=== PATIENT | male | born 1945 | race Hispanic/Latino ===

== ENCOUNTER → 2018-03-30 10:40 | Outpatient (CLI) | payer MEDICARE, BC, SELFPAY ==
[2018-03-30 11:34] LABS: AST(SGOT) 21 U/L (15-37); Alanine Aminotransfer ALT/SGPT 33 U/L (16-61); Albumin, Serum 3.5 g/dL (3.2-5.0); Alkaline Phosphatase 69 U/L (45-117); Bilirubin, Direct 0.12 mg/dL (0.00-0.30); Cholesterol 125 mg/dL (200); Globulin 3.4 g/dL (2.2-4.2); High Density Lipoprotein 64 mg/dL; Protein, Total 6.9 g/dL (6.4-8.2); Triglycerides 66 mg/dL; Very Low Density Lipoprotein 13 mg/dL (5-40)
== END ==
PROVIDERS: Nurse Practitioner Family; Family Provider Family Medicine; PCP Family Medicine; Visit Provider Internal Medicine Cardiovascular Disease
DX: I25.10 Atherosclerotic heart disease of native coronary artery without angina pectoris (principal); E78.5 Hyperlipidemia, unspecified
CPT/HCPCS: 36415; 80061; 80076

== ENCOUNTER → 2018-09-24 11:19 | Outpatient (CLI) | payer MEDICARE, BC, SELFPAY ==
[2018-09-24 10:53] VITALS: BMI 29.3
[2018-09-24 13:20] LABS: AST(SGOT) 14 U/L (15-37); Alanine Aminotransfer ALT/SGPT 28 U/L (16-61); Alkaline Phosphatase 43 U/L (45-117); Bilirubin, Direct 0.11 mg/dL (0.00-0.30); Cholesterol 156 mg/dL (200); Globulin 3.2 g/dL (2.2-4.2); High Density Lipoprotein 66 mg/dL; Protein, Total 7.2 g/dL (6.4-8.2); Triglycerides 89 mg/dL; Very Low Density Lipoprotein 18 mg/dL (5-40)
== END ==
PROVIDERS: Family Provider Family Medicine; PCP Family Medicine; Referring Provider Internal Medicine Cardiovascular Disease; Visit Provider Internal Medicine Cardiovascular Disease
DX: I10 Essential (primary) hypertension (principal); Z95.1 Presence of aortocoronary bypass graft
CPT/HCPCS: 36415; 80061; 80076

== ENCOUNTER → 2019-03-24 11:44 | Outpatient (CLI) | payer MEDICARE, BC, SELFPAY ==
[2019-03-24 11:08] VITALS: BMI 29.7
[2019-03-24 13:13] LABS: AST(SGOT) 18 U/L (15-37); Alanine Aminotransfer ALT/SGPT 29 U/L (16-61); Albumin, Serum 3.7 g/dL (3.2-5.0); Alkaline Phosphatase 48 U/L (45-117); Bilirubin, Direct 0.06 mg/dL (0.00-0.30); Cholesterol 150 mg/dL (200); Globulin 3.3 g/dL (2.2-4.2); High Density Lipoprotein 62 mg/dL; Triglycerides 84 mg/dL; Very Low Density Lipoprotein 17 mg/dL (5-40)
== END ==
PROVIDERS: Family Provider Family Medicine; PCP Family Medicine; Referring Provider Internal Medicine Cardiovascular Disease; Visit Provider Internal Medicine Cardiovascular Disease
DX: E78.5 Hyperlipidemia, unspecified (principal)
CPT/HCPCS: 36415; 80061; 80076

== ENCOUNTER 2019-07-11 18:47 | Emergency (ER) | payer MEDICARE, BC, SELFPAY ==
[2019-03-24 11:08] VITALS: BMI 29.7
[2019-07-11 18:48] VITALS: BP 176/72; PULSE 45; RESP 17; TEMP 36.8; O2SAT 99
--- NOTE | 2019-07-11 19:11 | CT_ITS ---
STUDY: CT BRAIN WITHOUT CONTRAST REASON FOR EXAM: Male, 74 years old. Trauma RADIATION DOSAGE (If Supplied By Facility): CTDIvol = ( 44.99 ) mGy, DLP = ( 829.85 ) mGycm TECHNIQUE: Transaxial CT imaging of the brain was performed without administration of intravenous contrast material. Individualized dose optimization techniques were used for this CT. COMPARISON: No relevant priors. FINDINGS: Normal soft tissue structures. Normal calvarium. There is mild cerebral atrophy with widening of the extra-axial spaces and ventricular dilatation. Normal white matter tracts of the cerebral hemispheres. Normal basal ganglia and thalami. Normal brainstem. Normal cerebellum. There is no intracranial hemorrhage. There are no findings of an acute ischemic infarction. There is mucosal thickening of multiple ethmoid air cells bilaterally. CT/Brain/Head without Contrast IMPRESSION: Chronic involutional changes of the brain. Chronic ethmoid sinusitis. Electronically Signed: Pelon Estrada MD at 19:40 EST , Service support ,
--- NOTE | 2019-07-11 19:15 | ED.VIS.INJ ---
History of Present Illness Chief Complaint: Fall Informant: Patient, Significant Other Onset: Today Mechanism/Context: Fall Quality of Pain: Dull, Aching Location: Head and posterior neck Current Severity: Mild Maximum Severity: Moderate Worsened by: Nothing Relieved by: Nothing Associated Symptoms: Loss of consciousness. Negative for: Parasthesias, Weakness, Loss of function, Inability to ambulate Length of loss of consciousness: 30 seconds Narrative: Patient is a 74-year-old male on aspirin for cardiac disease. He was on a ladder. He was on the third rung. He fell backwards striking the back of his head on the linoleum floor. He states he was dazed and had transient loss of conscious. He is on no anticoagulant. He denies blurred vision or loss of vision. He does report nausea. He states he has developed neck pain which he localizes to the spinous process of C7. He also complains of left-sided neck pain. He denies chest or upper back pain. He denies pain in his upper or lower extremities. He states he has little more difficulty walking compared to normal. Tetanus Immunization: 5-10 years Prior similar symptoms: No Recent Illness/Hospitalization: No - Past Medical History (1) Atherosclerotic heart disease of [place] coronary artery without angina pectoris Status: Chronic Comment: S/P CABG in 2003 with GRADY to LAD and diagonal branch; stenting to LCx in March 2016 (2) History of cholecystitis Status: Chronic (3) History of coronary artery bypass graft x 2 Status: Chronic Comment: CABG X 2 vessels: GRADY to LAD and diagonal to LAD 08/02/2004 @ [facility] per Dr. Blanca; (4) Hyperlipidemia Status: Chronic (5) Hypertension Status: Chronic (6) Nonrheumatic mitral (valve) insufficiency Status: Chronic (7) Sinus bradycardia Status: Chronic Past Medical History - Allergies and Home Meds Allergies/Adverse Reactions: Allergies No Known Allergies Allergy (Verified 07/11/19 18:48) Primary Care Physician: Kd Funez DO [Primary Care Provider] - Prior records reviewed: Yes Surgical History: cholecystectomy, TURP - Prostate CA., - - back surg 1980-x 3, 3 crushed vertebrae. Lives: Spouse/ Significant Other Smoking Status: Never smoker Alcohol: None Drugs: None Review of Systems General: Denies: Chills, Fever, Sweats Eyes: Denies: Visual changes - bilaterally, Blurred Vision - bilaterally, Diplopia ENT: Reports: Bilateral ear pain. Denies: Rhinorrhea, Sore throat Cardiovascular: Denies: Chest pain, Palpitations Respiratory: Denies: Dyspnea, Cough, Dyspnea on exertion Gastrointestinal: Reports: Nausea. Denies: Abdominal pain, Vomiting, Diarrhea, Melena, Hematochezia Genitourinary: Denies: Dysuria, Hematuria, Frequency Musculoskeletal: Reports: Neck pain. Denies: Myalgias, Arthralgias, Back pain, Swelling, Extremity Pain Skin: Denies: Rash, Wounds Neurological: Reports: Headache, - - Difficulty walking. Denies: Weakness, Parasthesia, Numbness Hematologic: Denies: Easy bruising, Easy bleeding Physical Exam Vital Signs/Narrative: Vital Signs Temp Pulse Resp BP Pulse Ox 07/11/19 18:48 98.3 F 45 L 17 176/72 H 99 Inital Vital Signs reviewed: Yes General: Well nourished, Well developed Head: Normocephalic, Atraumatic, Tenderness - There is tenderness over the occiput. Eyes: Perrl, EOMI ENT: TM's clear, No hemotympanum or drainage, No trauma. Negative for: Hemotympanum, Otorrhea, Nasal trauma, Nasal septal hematoma Neck: Nontender, Full ROM, Spinal Tenderness - Pain palpation over the spinous process of C7. Cardiovascular: Regular rhythm, No murmurs, Bradycardia Respiratory: No distress, CTA bilaterally, Chest nontender Abdomen: Soft, Nontender, Nondistended, Normal bowel sounds Back: Nontender, - - No pain palpation of the pelvis.. Negative for: CVA Tenderness - Right, CVA Tenderness - Left, Spinal Tenderness, Paraspinal Tenderness Extremeties: Axillary, median, radial and ulnar function intact right and left upper extremity. There is no pain the patient with the proximal humerus, lateral medial epicondyle, olecranon process radial head. Is no pain the patient with distal radius or ulna. Is no pain the patient with carpal bones, metacarpal bones or phalanges. There are abrasions and contusions noted. Skin: Normal color, No rash, Trauma - There are contusions and abrasions noted upper extremity.. Negative for: Cyanosis, Diaphoresis, Jaundice Neurological: Alert, Oriented x3, Cranial nerves II-XII grossly intact, Normal Strength, Normal Sensation, Normal DTR - There is no clonus or Babinski sign noted. Psychological: Normal affect Diagnostic/Tx/Re-eval Chest X-Ray - ED: Read by ED Physician, Read by Radiologist, - - Three-view x-rays cervical spine reveals a prior avulsion fracture of the spinous process C6. There is evidence of nonunion. There is degenerative change with no acute findings. Impressions Brain CT 07/11/19 19:11 IMPRESSION: Chronic involutional changes of the brain. Chronic ethmoid sinusitis. Electronically Signed: Pelon Estrada MD at 19:40 EST , Service support , Cervical Spine X-Ray 07/11/19 19:20 IMPRESSION: Cervical degenerative changes as detailed above. Old nonunited fracture or nonfused apophysis of the tip of the C6 spinous process. Electronically Signed: Pelon Estrada MD at 19:43 EST , Service support , 07/11/19 19:11 Brain/Head without Contrast [CT] Stat 07/11/19 19:20 Cerv Spine 2 or 3 Views [RAD] Stat - Medical Decision Making Per the [place] CT head rule imaging is required. CT of the head was obtained. Since the neck pain was not immediate will obtain C-spine films since he has point tenderness over the spinous process of C7. Patient is made n.p.o. Differential is contusion versus concussion versus intracranial bleed, traumatic. Need to evaluate for cervical strain versus fracture. ED Disposition - Plan for ED Patient: Disposition: Home or Assisted Living Diagnosis: Concussion with brief LOC, Cervical strain, acute Instructions: CONCUSSION, No Wake Up, Neck Sprain/Strain Referrals: Kd Funez DO [Primary Care Provider] - 1 Week if not improving
--- NOTE | 2019-07-11 19:20 | RAD_ITS ---
STUDY: X-RAY - CERVICAL SPINE REASON FOR EXAM: Male, 74 years old. Trauma TECHNIQUE: 4 view(s) of the cervical spine were obtained. COMPARISON: None FINDINGS: Normal anterior atlantoaxial articulation. Normal odontoid process. Normal cervical lordosis. There is endplate spondylosis of C4-C7. There is narrowing of the C4-5 through C6-7 disc spaces. There is an old nonunited fracture or nonfused apophysis of the tip of the C6 spinous process. There is no evidence of acute fracture. The soft tissue structures are unremarkable. RAD/Cerv Spine 2 or 3 Views IMPRESSION: Cervical degenerative changes as detailed above. Old nonunited fracture or nonfused apophysis of the tip of the C6 spinous process. Electronically Signed: Pelon Estrada MD at 19:43 EST , Service support ,
== END 2019-07-11 20:58 | disposition home or self-care (01) ==
PROVIDERS: Emergency Provider Emergency Medicine; Family Provider Family Medicine; PCP Family Medicine
DX: S06.0X1A Concussion with loss of consciousness of 30 minutes or less, initial encounter (principal); S16.1XXA Strain of muscle, fascia and tendon at neck level, initial encounter; W11.XXXA Fall on and from ladder, initial encounter; Y93.9 Activity, unspecified; Y92.9 Unspecified place or not applicable; J32.2 Chronic ethmoidal sinusitis; M47.812 Spondylosis without myelopathy or radiculopathy, cervical region; I25.10 Atherosclerotic heart disease of native coronary artery without angina pectoris; Z95.1 Presence of aortocoronary bypass graft; E78.5 Hyperlipidemia, unspecified; I10 Essential (primary) hypertension; Z90.49 Acquired absence of other specified parts of digestive tract; Z85.46 Personal history of malignant neoplasm of prostate
CPT/HCPCS: 70450; 72040; 99282

== ENCOUNTER → 2019-09-24 12:11 | Outpatient (CLI) | payer MEDICARE, BC, SELFPAY ==
[2019-09-24 13:23] LABS: AST(SGOT) 24 U/L (15-37); Alanine Aminotransfer ALT/SGPT 30 U/L (16-61); Albumin, Serum 3.8 g/dL (3.2-5.0); Alkaline Phosphatase 57 U/L (45-117); Bilirubin, Direct 0.08 mg/dL (0.00-0.30); Cholesterol 127 mg/dL (200); Globulin 3.5 g/dL (2.2-4.2); High Density Lipoprotein 53 mg/dL; Protein, Total 7.3 g/dL (6.4-8.2); Triglycerides 89 mg/dL; Very Low Density Lipoprotein 18 mg/dL (5-40)
== END ==
PROVIDERS: PCP Family Medicine; Referring Provider Internal Medicine Cardiovascular Disease; Visit Provider Internal Medicine Cardiovascular Disease
DX: E78.5 Hyperlipidemia, unspecified (principal)
CPT/HCPCS: 36415; 80061; 80076

== ENCOUNTER → 2020-04-24 12:45 | Outpatient (CLI) | payer MEDICARE, BC, SELFPAY ==
[2020-04-06 11:25] VITALS: BMI 29.0
--- NOTE | 2020-04-24 12:46 | ECHOD_ITS ---
Reason For Study: MURMUR Procedure This was a 2D Doppler, Color Flow transthoracic echocardiogram. Exam performed in department. Left Ventricle Normal LV size. Left ventricular systolic function is normal. Stage 2 diastolic dysfunction. No regional wall motion abnormalities noted. Right Ventricle Moderately dilated right ventricle. Normal systolic function. Atria The left atrium is severely enlarged. The right atrium is moderately enlarged. Mitral Valve Normal mitral valve. Mild (1+) eccentric mitral valve insufficiency. Tricuspid Valve Normal tricuspid valve. Mild (1+) tricuspid valve insufficiency. Pulmonary artery systolic pressure is 30 mmHg. Aortic Valve Trisinus/trileaflet aortic valve. Mild focal aortic valve calcification. Pulmonic Valve Normal pulmonic valve. Great Vessels Normal aortic root. The pulmonary artery is normal size. Normal inferior vena cava. Pericardium/Pleural No pericardial effusion. MMode/2D Measurements & Calculations LVIDd: 5.4 cm IVSd: 1.1 cm LVOT diam: 2.2 cm LVIDs: 3.5 cm LVPWd: 1.1 cm LVOT area: 4.0 cm2 RVDd: 5.3 cm FS: 34.8 % Ao root diam: 3.1 cm LAV(MOD-bp): 135.2 ml LA A4 area: 32.4 cm2 LAV(MOD-bp) Indexed: 70.7 ml/m2 LAV(MOD-sp2): 129.9 ml LAV(MOD-sp4): 139.5 ml LA dimension(2D): 5.5 cm RA A4 area: 29.6 cm2 Time Measurements MV dec time: 0.20 sec Doppler Measurements & Calculations MV E max aaron: 91.1 cm/sec Lat Peak E' Aaron: 12.8 cm/sec Med Peak E' Aaron: 6.0 cm/sec MV A max aaron: 54.0 cm/sec E/E' lat: 7.1 E/E' med: 15.1 MV E/A: 1.7 Ao V2 max: 224.4 cm/sec LV V1 max: 116.1 cm/sec SV(LVOT): 127.6 ml Ao max P.2 mmHg LV V1 max P.4 mmHg Ao V2 mean: 160.4 cm/sec LV V1 mean P.2 mmHg Ao mean P.1 mmHg LV V1 mean: 85.4 cm/sec Ao V2 VTI: 62.0 cm LV V1 VTI: 32.2 cm JULIA(I,D): 2.1 cm2 JULIA(V,D): 2.0 cm2 PA V2 max: 108.4 cm/sec TR max aaron: 263.2 cm/sec TR max P.7 mmHg Interpretation Summary Normal LV size. Left ventricular systolic function is normal. Stage 2 diastolic dysfunction. Pulmonary artery systolic pressure is 30 mmHg. The left atrium is severely enlarged. The right atrium is moderately enlarged. Ordering Physician: Shadi Caballero Referring Physician: Kd Funez Performed By: Tamie Santillan RDCS, RVT
== END ==
PROVIDERS: PCP Family Medicine; Referring Provider Nurse Practitioner Family; Visit Provider Nurse Practitioner Family
DX: I25.10 Atherosclerotic heart disease of native coronary artery without angina pectoris (principal); I34.0 Nonrheumatic mitral (valve) insufficiency
CPT/HCPCS: 93306

== ENCOUNTER → 2021-07-30 08:04 | Outpatient (CLI) | payer MEDICARE, BC, SELFPAY ==
--- NOTE | 2021-07-30 08:07 | RAD_ITS ---
STUDY: X-RAY - ESOPHAGUS (BARIUM SWALLOW) WITH FLUOROSCOPY REASON FOR EXAM: Male, 76 years old. DYSPHAGIA TECHNIQUE: 17 view(s) of the esophagus were obtained following swallowing of barium. FLUOROSCOPY TIME (if supplied): (1 minute) minutes/seconds COMPARISON: None. FINDINGS: There is no demonstrated esophageal foreign body. There is no demonstrated stricture or mucosal abnormality. There is a small hiatal hernia of the fundus of the stomach. A mild degree of weblike stenosis is seen at the gastroesophageal junction. The patient ingested a 12 mm tablet of barium. The tablet is temporarily trapped at that level. There is evidence of gastroesophageal reflux. There is atherosclerotic tortuosity of the aortic arch and descending thoracic aorta. Normal visualized pulmonary parenchyma. There are diffuse degenerative changes of the visualized thoracic spine. RAD/Esophagus Single Contrast IMPRESSION: Small sliding hiatal hernia with mild narrowing at the gastroesophageal junction due to weblike stenosis. There is transient trapping of the 12 mm tablet of barium at that site. Gastroesophageal reflux. Electronically Signed: Edmond Mejia MD at 13:04 EST , Service support ,
== END ==
PROVIDERS: PCP Internal Medicine; Referring Provider Otolaryngology Otolaryngology/Facial Plastic Surgery; Visit Provider Otolaryngology Otolaryngology/Facial Plastic Surgery
DX: R13.10 Dysphagia, unspecified (principal)
CPT/HCPCS: 74220

== ENCOUNTER 2021-08-13 12:00 | Outpatient (RCR) | payer MEDICARE, BC, SELFPAY ==
--- NOTE | 2021-07-17 17:32 | HP.PTEVAL ---
Patient's Visit Information DELL CHAN is a 76 year old M referred to Physical Therapy by Dr. Janet Green MD with a diagnosis of LBP. Date of Evaluation: 07/17/21 Physical Therapist: STEFF WildT, OCS, CSCS - Visit Plan Frequency: 3x /Week Duration: 4-6 Weeks Plan: 3x/week for 4-6 weeks as needed for... 1 rollout and stretch quads and Hip flexors. 2. Work on lumbar extension and ext mobs t/s l/s. 3. postural and core and upper leg strength to HEP. 4. STM to R t/s paraspinals as needed. - Subjective Had a fall or two in past couple months. I am fighting a disease with meds for last couple years for leukemia. [place] better with meds. The back has hurt since May and hurts for up to 3 hours at a time. Not sure what started it but did fall off a ladder around that time without other injuries(ladder slipped, not a balance issue). No breaks but did bump head. Last fall was 06/25 falling off a step ladder adjusting curtain rods. warned him not to do it. Missed the last step at bottomand hit the ground landing on left side anteriorly and caught self with hands on floor(ext moment). Since then has had a lot of pain trying to sleep. Sometimes mild pain for short duration but lingers at other times. Went shooping last friday and can typically walk OK but worse if walks too far. R leg started hurting as his knees are bad. That was about 8 times around [employer]. That pain started in R LB at the time and was up to 8/10 and can work its way into R medial lower leg. Also gets cramps in both legs. Sitting is OK unless he turns too fast to the right and that will hurt in middle of spine into R hip. Can sit two hours before it gets real bad. Needs to get stronger in muscles. Activities: Basic ADLs are OK. Not employed. Activities at home are getting done and he is cleaning the house but can only do so much before he gets tired fromt he pain. No numbness or tingling. No dizzyness. Hurts to cough. No trouble bowel or bladder. No cane or walker. - Pain LBP R Pain Intensity (Out of 10): 1 Pain Intensity Range: 1, 8 - Objective Walks hunched over with kyphosis in thoracic spine and sits in the same manner, some of this is structural. Tender to touch R 6/7 rib which sticks out a little bit and surrounding musculature., Very stiff and tender to PA pressure T/S...less so lumbar. Good cervical aROM without pain. reflexes 2/3 patella and achilles. Sensation LE WNL to gross light touch in LE. UE AAROM WFL, some pain with resisted flexion in LB. core strength 3 ext and flexion. LE strength 4- without myotomal abnormalities except hip ext and abd 3/5 symmetrical. Max tightness in hip flexors and quads, mod in HS with + B SLR for back pain. Lumbar AROM ext nil, flexion slow but min deficits, SB mod deficits. Trasnfers bed and chair slow but I. Walks well and steps reciprocal with one rail. Unable to lie supine at first due to pain but after ext ex could lie flat. - Balance/Special Test Scores Functional Gait Assessment Score: 24 % Disability: 20.0000 Oswestry Low Back Score: 17 - Goals Goal 1:: Sleep without waking at night due to pain Goal Time Frame: 4-6 Weeks Goal 2:: Patient stand from chair and ambulate without evidence of pain. Goal Time Frame: 4-6 Weeks Goal 3:: Pt state 90% improvement incondition and I appropiate HEP to minimize future problems. Goal Time Frame: 4-6 Weeks Goal 4:: Oswestry score 10 or less. Goal Time Frame: 4-6 Weeks - Rehabilitation Potential Physical Therapy Diagnosis: LBP causing limiting funciton Rehabilitation Potential: Fair - Anticipated Interventions Patient/Client Instruction: Educate patient on: Condition, Plan of Care For the Purpose of:: To decrease pain, To increase ROM, To improve muscle performance and motor function, To increase tolerance to activity/condition/position, To improve ability of physical actions for home/community/work/leisure Therapeutic Exercise to Include: Strength training, Postural training, Flexibilty training, Passive ROM, Active ROM, Dynamic Lumbar Stabilization For the Purpose of:: To decrease pain, To increase ROM, To improve muscle performance and motor function, To increase tolerance to activity/condition/position, To improve ability of physical actions for home/community/work/leisure Manual Therapy Techniques to Include: Mobilization, Passive ROM, Soft tissue mobilization For the Purpose of:: To decrease pain, To increase ROM Thermo therapy (hot pack): Yes For the Purpose of:: To improve nutrient delivery to tissue Thank you for the opportunity to evaluate your patient. For Medicare and Medicare HMO plans, please review the plan of care and approve it. It will need to be FAXED BACK to us at [phone] for Medicare purposes. For Medicare only, by signing this I certify the plan of care. Please let me know if there are questions or concerns regarding this plan of care. Physician Signature: Date:
--- NOTE | 2021-08-13 12:16 | HP.PTDCSUM ---
It has been my pleasure to treat DELL CHAN referred by Dr. Janet Green MD, with the diagnosis of LBP for a total of 10 visit(s). Discharge Date: 08/13/21 Please see the following information for a summary of their discharge status. Subjective: Just had an MRI of his Low back. usually still have problems with twisting wrong as a reaction adn gets the pain. Pain is not ongoing like originally. No disruption from L hip pain. R hip is almost nothing. has some LBP that is improved with exercises he is doing at home. Activities are normal. Pain is mild if he gets it. Pain up to 2/10 lately and manageable. 0/10 currently Sleeping well. Will see doctor for MRI results(kidney?) LBP R Pain Intensity (Out of 10): 0 LBP L Pain Intensity (Out of 10): 0 % Improvement: 99 Objective/Function: Good AROM of LB. Ext still limited to about 10 but no pain. Moves easily off chair and table. Walks normal. Lies flat without issues. Goal 1:: Sleep without waking at night due to pain Goal Progress: Goal Met Goal 2:: Patient stand from chair and ambulate without evidence of pain. Goal Progress: Goal Met Goal 3:: Pt state 90% improvement incondition and I appropiate HEP to minimize future problems. Goal Progress: Goal Met Goal 4:: Oswestry score 10 or less. Goal Progress: Goal Met Plan: d/c to HEP If there are questions or concerns regarding this patient's physical therapy, please feel free to call me at [phone]. Thank you for the referral of this patient. Sincerely, Tito Pretty, DPT, OCS, CSCS Balance/Gait/Functional tests - Balance/Special Test Scores Functional Gait Assessment Score: 24 % Disability: 20.0000 Oswestry Low Back Score: 3
== END 2021-08-13 19:00 | disposition home or self-care (01) ==
LOC: PT 12:00
PROVIDERS: PCP Internal Medicine; Referring Provider Internal Medicine; Visit Provider Internal Medicine
DX: M54.50 Low back pain, unspecified (principal); Z98.890 Other specified postprocedural states
CPT/HCPCS: 97110; 97140; 97162; 97164

== ENCOUNTER → 2021-10-25 11:40 | Day surgery (SDC) | payer MEDICARE, BC, SELFPAY ==
[2021-10-25 11:56] VITALS: BP 154/71; PULSE 57; TEMP 36.3; O2SAT 98
== END ==
PROVIDERS: PCP Internal Medicine; Referring Provider Internal Medicine; Visit Provider Surgery
PROC: F00ZJWZ Instrumental Swallowing and Oral Function Assessment using Swallowing Equipment (ICD-10-PCS; CPT 43235; principal; 2021-10-25 11:55)
DX: K21.9 Gastro-esophageal reflux disease without esophagitis (principal)
CPT/HCPCS: 91010

== ENCOUNTER 2021-12-05 07:37 | Outpatient (CLI) | payer MEDICARE, BC, SELFPAY ==
[2021-12-05 09:33] LABS: Free T3 2.1 pg/mL (2.18-3.98); Thyroid Stim Hormone (TSH) 4.05 uIU/mL (0.358-3.74)
[2021-12-11 12:00] LABS: Thyroid Peroxidase AB < 8 IU/mL (0-34)
[2021-12-11 13:11] LABS: Thyroglobulin Antibody < 1.0 IU/mL (0.0-0.9)
== END 2021-12-05 23:59 | disposition home or self-care (01) ==
LOC: LAB 07:39
PROVIDERS: PCP Internal Medicine; Referring Provider Internal Medicine; Visit Provider Internal Medicine
DX: E04.1 Nontoxic single thyroid nodule (principal); E78.5 Hyperlipidemia, unspecified
CPT/HCPCS: 36415; 84439; 84443; 84481; 86376; 86800

== ENCOUNTER 2023-08-05 15:46 | Emergency (ER) | payer MEDICARE, BC, SELFPAY ==
[2023-08-05 15:48] VITALS: BP 188/60; PULSE 59; RESP 18; TEMP 36.8; O2SAT 100; BMI 24.9
--- NOTE | 2023-08-05 16:19 | EDS_ITS ---
HPI History of Present Illness Chief Complaint: Confusion Narrative Narrative: 78-year-old male with history of progressive dementia presenting with confusion. Patient was found outside of the house. He states that he believes he had a little girl in the backseat of his truck yesterday. He apparently believes she had Cobb's tied around her head. He states that he asked her why she was looking at him and she said nothing to him. He took this as not wanting to respond. His daughter who is here states that he was at home yesterday and this did not occur. Patient apparently was able to drive away from home today after finding his keys and was found in [place] going to [employer]. The police were called and he was detained and sent to the ER for evaluation. Patient's daughter feels like he is at baseline. She states that he has had progressive dementia. She states that he has had hallucinations both audio and visual. Patient is currently on Rexulti, however this is making his symptoms worse. Patient was previously on [facility] Medical History Atherosclerotic heart disease of [place] coronary artery without angina pectoris Behavioral and psychological symptoms of dementia Chronic myelogenous leukemia Essential (primary) hypertension Food sticks on swallowing GERD (gastroesophageal reflux disease) History of cholecystitis Hyperlipidemia Lump in throat Nonrheumatic mitral (valve) insufficiency Prostate cancer Secondary pulmonary arterial hypertension Sinus bradycardia Home Medications multivitamin with folic acid 400 mcg tablet 1 tab PO DAILY 08/09/13 [History Last Taken 08/19/13] sildenafil (pulm.hypertension) 20 mg tablet 20 mg PO .COMPLEX 10/02/17 [History Last Taken Unknown] guaifenesin 600 mg tablet, extended release 12 hr (Mucinex) 600 mg PO BID PRN 07/05/21 [History Last Taken Unknown] rosuvastatin 10 mg tablet (Crestor) 10 mg PO QDAY #90 tabs 04/24/22 [Rx Last Taken Unknown] bosutinib 500 mg tablet 500 mg PO DAILY 02/17/23 [History Last Taken Unknown] tamsulosin 0.4 mg capsule (Flomax) 0.4 mg PO DAILY 02/17/23 [History Last Taken Unknown] lisinopril 20 mg tablet 20 mg PO BID #180 tabs 03/12/23 [Rx Last Taken Unknown] nitroglycerin 0.4 mg sublingual tablet 0.4 mg sublingual Q5M PRN Chest Pain #25 tabs 06/04/23 [Rx Last Taken Unknown] Allergy/AdvReac Type Severity Reaction Status Date / Time No Known Allergies Allergy Verified 07/31/23 15:45 Family History Brother CAD (coronary artery disease) Myocardial infarction Alzheimer's dementia Brother , Age 63 Cancer Mother Cancer Breast cancer Father Alzheimer's dementia Surgical History H/O coronary artery bypass surgery (08/02/04) H/O knee surgery H/O laminectomy History of bone marrow biopsy History of cholecystectomy History of coronary artery stent placement (03/19/16) History of esophagogastroduodenoscopy (EGD) History of right inguinal hernia repair History of tonsillectomy History of transurethral resection of prostate (2012) Iliac artery bleed Social History Smoking Status: Never smoker alcohol intake: current alcohol intake frequency: a few times a month Alcohol type: beer caffeine: No EXAM Physical Exam Const Vital Signs: 08/05/23 15:48 Temperature 98.2 F Temperature Source Oral Pulse Rate 59 L Respiratory Rate 18 Blood Pressure 188/60 H Blood Pressure Mean 102 Pulse Ox 100 Oxygen Delivery Method Room Air MDM MDM MDM Narrative Medical decision making narrative: Patient presenting with his daughter for more confusion and dementia. Is not a new problem. No evidence of trauma on examination. Vital signs are stable he is afebrile. Per daughter she just wants some resources to help take care of him during the daytime when she can be around. I had social work come see them. Patient's daughter states that she is comfortable taking him home and is happy with the resources. Impression: 1. History of dementia Discharge Plan Triage Chief Complaint: Confusion ED Provider: Steve Gilbert Dx/Rx/DC Orders Instructions: ED DEMENTIA Alzheimer's Prescriptions: No Action sildenafil (pulm.hypertension) 20 mg tablet 20 mg PO .COMPLEX Patient Comments: 20 mg PO 5 tablets prn: do not take within 24 hours of nitro Rx Instructions: 20 mg PO 5 tablets prn: do not take within 24 hours of nitro guaifenesin [Mucinex] 600 mg tablet extended release 12hr 600 mg PO BID PRN bosutinib 500 mg tablet 500 mg PO DAILY Rx Instructions: must administer with a meal/food tamsulosin [Flomax] 0.4 mg capsule 0.4 mg PO DAILY multivitamin with folic acid 1 TABLET tablet 1 tab PO DAILY Patient Comments: multivitamin rosuvastatin [Crestor] 10 mg tablet 10 mg PO QDAY Qty: 90 3RF lisinopril 20 mg tablet 20 mg PO BID Qty: 180 3RF nitroglycerin 0.4 mg tablet, sublingual 0.4 mg SUBLINGUAL Q5M PRN (Reason: Chest Pain) Qty: 25 3RF Primary Care Provider: Janet Green Referrals: Janet Green MD [Primary Care Provider] - Disposition Disposition: Home, Self Care
--- NOTE | 2023-08-05 16:45 | CM.ED ---
Social Work Physician requested SW to provided some support and resources for patient and patient's . SW introduced self and role to patient and , Jyotsna. 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 Pt left their home and was found wandering outside with confusion. reports patient is at baseline and has no additional concerns about mental status. SW provided [place] [facility] day [facility] information, direction home handout, and [facility] private pay list. SW also discussed PCP can do an order for [facility] if she thinks it would be helpful. reports [place] is primarily what she needs and she will look into it. SW provided emotional support. denies any other SW needs at this time. Brianne Agrawal DERMATOLOGY NURSE, [employer]
== END 2023-08-05 18:06 | disposition home or self-care (01) ==
PROVIDERS: Emergency Provider Student in an Organized Health Care Education/Training Program; PCP Internal Medicine; Referring Provider Student in an Organized Health Care Education/Training Program; Visit Provider Student in an Organized Health Care Education/Training Program
DX: F03.90 Unspecified dementia, unspecified severity, without behavioral disturbance, psychotic disturbance, mood disturbance, and anxiety (principal); I25.10 Atherosclerotic heart disease of native coronary artery without angina pectoris; I10 Essential (primary) hypertension; E78.5 Hyperlipidemia, unspecified; Z79.899 Other long term (current) drug therapy
CPT/HCPCS: 99284

== ENCOUNTER 2023-10-25 13:11 | Inpatient (IN) | payer MEDICARE, BC, SELFPAY ==
[2023-10-25 13:12] VITALS: BP 150/64; PULSE 62; RESP 18; TEMP 36.6; O2SAT 99
--- NOTE | 2023-10-25 13:19 | EKG12_ITS ---
Test Reason : Blood Pressure : / mmHG Vent. Rate : 052 BPM Atrial Rate : 052 BPM P-R Int : 178 ms QRS Dur : 108 ms QT Int : 428 ms P-R-T Axes : 046 -23 011 degrees QTc Int : 398 ms Sinus bradycardia Minimal voltage criteria for LVH, may be normal variant ( R in aVL ) Nonspecific ST abnormality Abnormal ECG Confirmed by RENEE JIMENEZ, DORITA ([id number]), website/blog editor LORENZO BENTLEY ([id number]) on 10/27/2023 10:17:46 AM Referred By: Confirmed By:DORITA DURAN MD
--- NOTE | 2023-10-25 13:27 | CT_ITS ---
STUDY: CT BRAIN WITHOUT CONTRAST REASON FOR EXAM: Male, 78 years old. confusion RADIATION DOSAGE (If Supplied By Facility): CTDIvol = ( 44.99 ) mGy, DLP = ( 863.60 ) mGycm TECHNIQUE: Transaxial CT imaging of the brain was performed without administration of intravenous contrast material. Individualized dose optimization techniques were used for this CT. COMPARISON: 07/11/2019 FINDINGS: Normal soft tissue structures. Normal calvarium. There is moderate cerebral atrophy with widening of the extra-axial spaces and ventricular dilatation. There are areas of decreased attenuation within the white matter tracts of the supratentorial brain, consistent with microvascular disease changes. Normal basal ganglia and thalami. Normal brainstem. Normal cerebellum. There is no intracranial hemorrhage. There are no findings of an acute ischemic infarction. Normal visualized paranasal sinuses. CT/Brain/Head without Contrast IMPRESSION: Chronic involutional changes of the brain. Electronically Signed: Gonsalo Richards MD at 15:10 EST ,
--- NOTE | 2023-10-25 13:30 | EDS_ITS ---
HPI <LJ Valera - Last Filed: 10/25/23 15:48> History of Present Illness Chief Complaint: Confusion Narrative Narrative: 78-year-old male with PMH of HTN, HLD, CAD, Alzheimer's dementia was brought in after being pink slipped by [facility]. Deputies were contacted by the patient's . She states he had all of his guns not on his bed when she walked in and asked them to put them away he did not want to. He is not suicidal homicidal but is confused from his dementia and she does not feel he is safe at home. He made comments about seeing things that are not there and is having nonsensical conversations. He is also known to wander from the house. He is unable to drive. When I asked the patient if he is suicidal or he said I have never wanted to do anything threatening to myself. When I asked about hallucinations he cannot really explain. <Dr. Jaswant James MD - Last Filed: 10/25/23 19:28> Narrative Prior similar symptoms: Yes Recent Illness/Hospitalization: No PFSH <LJ Valera - Last Filed: 10/25/23 15:48> PFSH Medical History Atherosclerotic heart disease of [place] coronary artery without angina pectoris Behavioral and psychological symptoms of dementia Chronic myelogenous leukemia Essential (primary) hypertension Food sticks on swallowing GERD (gastroesophageal reflux disease) History of cholecystitis Hyperlipidemia Lump in throat Nonrheumatic mitral (valve) insufficiency Prostate cancer Secondary pulmonary arterial hypertension Sinus bradycardia Home Medications multivitamin with folic acid 400 mcg tablet 1 tab PO DAILY 08/09/13 [History Last Taken 10/25/23] sildenafil (pulm.hypertension) 20 mg tablet 20 mg PO .COMPLEX 10/02/17 [History Last Taken Unknown] guaifenesin 600 mg tablet, extended release 12 hr (Mucinex) 600 mg PO BID PRN congestion 07/05/21 [History Last Taken Unknown] bosutinib 500 mg tablet 500 mg PO DAILY 02/17/23 [History Last Taken Unknown] tamsulosin 0.4 mg capsule (Flomax) 0.4 mg PO DAILY 02/17/23 [History Last Taken 10/24/23] lisinopril 20 mg tablet 20 mg PO BID #180 tabs 03/12/23 [Rx Last Taken 10/25/23] nitroglycerin 0.4 mg sublingual tablet 0.4 mg sublingual Q5M PRN Chest Pain #25 tabs 06/04/23 [Rx Last Taken Unknown] rosuvastatin 10 mg tablet See Rx Instructions .Route .COMPLEX #90 tabs 08/19/23 [Rx Last Taken 10/24/23] Allergy/AdvReac Type Severity Reaction Status Date / Time No Known Allergies Allergy Verified 10/25/23 13:16 Family History Brother CAD (coronary artery disease) Myocardial infarction Alzheimer's dementia Brother , Age 63 Cancer Mother Cancer Breast cancer Father Alzheimer's dementia Surgical History H/O coronary artery bypass surgery (08/02/04) H/O knee surgery H/O laminectomy History of bone marrow biopsy History of cholecystectomy History of coronary artery stent placement (03/19/16) History of esophagogastroduodenoscopy (EGD) History of right inguinal hernia repair History of tonsillectomy History of transurethral resection of prostate (2012) Iliac artery bleed Social History Smoking Status: Never smoker alcohol intake: current alcohol intake frequency: a few times a month Alcohol type: beer caffeine: No ROS <LJ Valera - Last Filed: 10/25/23 15:48> ROS ED ROS Narrative Constitutional: Negative for fever, chills, malaise. CVS: Negative for chest pain. Respiratory: Negative for shortness of breath. GI: Negative for nausea, vomiting. EXAM <LJ Valera - Last Filed: 10/25/23 15:48> Physical Exam Narrative Exam Narrative: CONST: Patient sitting in no acute distress. EYES: Normal inspection. NECK: Normal inspection. RESP: No respiratory distress, CTAB. CVS: Regular rate and rhythm, no murmur, no gallop. ABD: Soft and nontender, no guarding or rebound, nondistended. SKIN: Color normal, no rash, warm, dry, intact. EXTREMITIES: Normal appearance, no pedal edema. NEURO: Alert to self only. States year is 1925. Follows commands, moving all extremities. PSYCH: Normal affect. Const Vital Signs: 10/25/23 13:12 10/25/23 15:40 Temperature 98 F 98.7 F Temperature Source Temporal Pulse Rate 62 74 Respiratory Rate 18 16 Blood Pressure 150/64 H 145/96 H Blood Pressure Mean 92 112 Pulse Ox 99 94 Oxygen Delivery Method Room Air <Dr. Jaswant James MD - Last Filed: 10/25/23 19:28> Physical Exam Const Vital Signs: 10/25/23 13:12 10/25/23 15:40 Temperature 98 F 98.7 F Temperature Source Temporal Pulse Rate 62 74 Respiratory Rate 18 16 Blood Pressure 150/64 H 145/96 H Blood Pressure Mean 92 112 Pulse Ox 99 94 Oxygen Delivery Method Room Air MDM <LJ Valera - Last Filed: 10/25/23 15:48> MDM MDM Narrative Medical decision making narrative: History gathered from: Patient's , patient Patient has a debate patient has dementia and feels he was not safe at home. He appears well and nontoxic. He is alert to self only. He does not always answer historical questions appropriately consistent with dementia. Patient he has no focal neurological deficits. Screening labs show mild anemia at 10.4, BUN 27, creatinine 1.32. Alcohol levels negative. Urine is pending. CT brain shows no acute process. At the level of his advanced dementia does not feel he is safe at home and likely placement in a memory care unit. He is not suicidal or homicidal and I do not think he requires geropsych. Case was discussed with the hospitalist for admission. I have personally performed a face to face assessment of the patient and have reviewed the ERIKA Note. I performed a substantive portion of the visit including all aspects of the following. My kaufman findings include: History is [78-year-old male history of dementia lives at home with his . states today had always handgun spread out over the bed she said is just a little point that she does not feel safe at home for either the patient or herself. He never talked about being suicidal. He made no threats. He has had no recent illness.] Exam is [78-year-old male no acute distress. Vital signs stable afebrile. HEENT exam unremarkable atraumatic. Moist mucous members. Neck nontender. Lungs clear to auscultation bilaterally. Heart regular rhythm rate about 60 no murmur. Chest wall and ribs nontender. Abdomen soft nontender. Moving all 4 extremities. Nontender no edema. Normal flight attendant strength. Normal dorsi plantarflexion. Back nontender. Neurologically he is awake and alert. He answers questions and follows commands. He is demented and is unable to give any accurate date or time.] Medical Decision Making [78-year-old male with dementia. Will undergo geropsych workup. And then will speak to the hospitalist about admission for placement. I do not think he needs geropsych and I discussed this with his and she is in agreement.] Other additions or changes: [None] Lab Data Labs: Laboratory Results - last 24 hr 10/25/23 10/25/23 13:30 16:35 WBC 6.0 RBC 3.64 L Hgb 10.4 L Hct 32.2 L MCV 88.5 MCH 28.6 MCHC 32.3 RDW Std Deviation 41.5 RDW Coeff of Lidia 12.9 Plt Count 207 MPV 9.4 Immature Gran % (Auto) 0.300 Neut % (Auto) 72.6 H Lymph % (Auto) 17.6 L [place] % (Auto) 8.2 Eos % (Auto) 0.8 Baso % (Auto) 0.5 Absolute Neuts (auto) 4.3 Absolute Lymphs (auto) 1.05 Nucleated RBC % 0 Sodium 143 Potassium 3.7 Chloride 112 H Carbon Dioxide 27.0 Anion Gap 4 L BUN 27 H Creatinine 1.32 H Est GFR (MDRD) Af Amer 67 Est GFR (MDRD) Non-Af 56 L BUN/Creatinine Ratio 20.5 H Glucose 125 H Calcium 9.3 Total Bilirubin 0.30 AST 19 ALT 25 Alkaline Phosphatase 48 Total Protein 6.8 Albumin 3.6 Globulin 3.2 Albumin/Globulin Ratio 1.1 Urine Color Yellow Urine Clarity Clear Urine pH 6.5 Ur Specific [place] 1.010 Urine Protein Negative Urine Glucose (UA) Normal Urine Ketones Negative Urine Occult Blood Negative Urine Nitrite Negative Urine Bilirubin Negative Urine Urobilinogen Normal Ur Leukocyte Esterase Negative Urine RBC 0 SEEN Urine WBC 0 SEEN Ur Squamous Epith Cells 0 SEEN Urine Bacteria 0 SEEN Urine Mucus 0 SEEN Urine Opiates Screen NEGATIVE Urine Methadone Screen NEGATIVE Ur Barbiturates Screen NEGATIVE Ur Phencyclidine Scrn NEGATIVE Ur Amphetamines Screen NEGATIVE MDMA (Ecstasy) Screen NEGATIVE U Benzodiazepines Scrn NEGATIVE Urine Cocaine Screen NEGATIVE U Cannabinoids Screen NEGATIVE Ur Drug Screen Comment Ethyl Alcohol < 3.0 Radiography Diagnostic Testing: Clinical Impression(s) from Imaging Studies Brain CT 10/25/23 13:27 IMPRESSION: Chronic involutional changes of the brain. Electronically Signed: Gonsalo Richards MD at 15:10 EST , EKG Initial EKG: Attestation: I personally reviewed and interpreted this EKG as follows: Comments: Sinus bradycardia 52 bpm No acute ischemic changes <Dr. Jaswant James MD - Last Filed: 10/25/23 19:28> MDM MDM Narrative Medical decision making narrative: History gathered from: Patient's , patient Patient has a debate patient has dementia and feels he was not safe at home. He appears well and nontoxic. He is alert to self only. He does not always answer historical questions appropriately consistent with dementia. Patient he has no focal neurological deficits. Screening labs show mild anemia at 10.4, BUN 27, creatinine 1.32. Alcohol levels negative. Urine is pending. CT brain shows no acute process. At the level of his advanced dementia does not feel he is safe at home and likely placement in a memory care unit. He is not suicidal or homicidal and I do not think he requires geropsych. Case was discussed with the hospitalist for admission. I have personally performed a face to face assessment of the patient and have reviewed the ERIKA Note. I performed a substantive portion of the visit including all aspects of the following. My kaufman findings include: History is [78-year-old male history of dementia lives at home with his . states today had always handgun spread out over the bed she said is just a little point that she does not feel safe at home for either the patient or herself. He never talked about being suicidal. He made no threats. He has had no recent illness.] Exam is [78-year-old male no acute distress. Vital signs stable afebrile. HEENT exam unremarkable atraumatic. Moist mucous members. Neck nontender. Lungs clear to auscultation bilaterally. Heart regular rhythm rate about 60 no murmur. Chest wall and ribs nontender. Abdomen soft nontender. Moving all 4 extremities. Nontender no edema. Normal flight attendant strength. Normal dorsi plantarflexion. Back nontender. Neurologically he is awake and alert. He answers questions and follows commands. He is demented and is unable to give any accurate date or time.] Medical Decision Making [78-year-old male with dementia. And then will speak to the hospitalist about admission for placement. I do not think he needs geropsych and I discussed this with his and she is in agreement.] Other additions or changes: [None] History & Record Review Discussion w/independent historian: Patient Additional record(s) reviewed:: Prior inpatient record, Prior outpatient record, Prior ED visit and Prior labs Lab Data Attestation: I reviewed the patient's lab results. Lab results narrative: CBC shows a white count of 6. H&H of 10.4 and 32. Platelets 207. Labs: Laboratory Results - last 24 hr 10/25/23 10/25/23 13:30 16:35 WBC 6.0 RBC 3.64 L Hgb 10.4 L Hct 32.2 L MCV 88.5 MCH 28.6 MCHC 32.3 RDW Std Deviation 41.5 RDW Coeff of Lidia 12.9 Plt Count 207 MPV 9.4 Immature Gran % (Auto) 0.300 Neut % (Auto) 72.6 H Lymph % (Auto) 17.6 L [place] % (Auto) 8.2 Eos % (Auto) 0.8 Baso % (Auto) 0.5 Absolute Neuts (auto) 4.3 Absolute Lymphs (auto) 1.05 Nucleated RBC % 0 Sodium 143 Potassium 3.7 Chloride 112 H Carbon Dioxide 27.0 Anion Gap 4 L BUN 27 H Creatinine 1.32 H Est GFR (MDRD) Af Amer 67 Est GFR (MDRD) Non-Af 56 L BUN/Creatinine Ratio 20.5 H Glucose 125 H Calcium 9.3 Total Bilirubin 0.30 AST 19 ALT 25 Alkaline Phosphatase 48 Total Protein 6.8 Albumin 3.6 Globulin 3.2 Albumin/Globulin Ratio 1.1 Urine Color Yellow Urine Clarity Clear Urine pH 6.5 Ur Specific [place] 1.010 Urine Protein Negative Urine Glucose (UA) Normal Urine Ketones Negative Urine Occult Blood Negative Urine Nitrite Negative Urine Bilirubin Negative Urine Urobilinogen Normal Ur Leukocyte Esterase Negative Urine RBC 0 SEEN Urine WBC 0 SEEN Ur Squamous Epith Cells 0 SEEN Urine Bacteria 0 SEEN Urine Mucus 0 SEEN Urine Opiates Screen NEGATIVE Urine Methadone Screen NEGATIVE Ur Barbiturates Screen NEGATIVE Ur Phencyclidine Scrn NEGATIVE Ur Amphetamines Screen NEGATIVE MDMA (Ecstasy) Screen NEGATIVE U Benzodiazepines Scrn NEGATIVE Urine Cocaine Screen NEGATIVE U Cannabinoids Screen NEGATIVE Ur Drug Screen Comment Ethyl Alcohol < 3.0 Radiography Diagnostic Testing: Clinical Impression(s) from Imaging Studies Brain CT 10/25/23 13:27 IMPRESSION: Chronic involutional changes of the brain. Electronically Signed: oGnsalo Richards MD at 15:10 EST , Discharge Plan Triage Chief Complaint: Confusion ED Midlevel Provider: Sadaf Katz ED Provider: Jaswant James Dx/Rx/DC Orders Clinical Impression: Dementia with behavioral problem Primary Care Provider: Janet Green
[2023-10-25 13:43] LABS: Absolute Lymphocyte Count 1.05 X10^3/uL (0.83-4.51); Absolute Neutrophil Count 4.3 X10^3/uL (2.0-7.7); Basophil# 0.03 X10^3/uL; Basophil% 0.5 % (0-1); Eosinophil# 0.05 X10^3/uL; Eosinophils% 0.8 % (0-5); Hematocrit 32.2 % (40-54); Hemoglobin 10.4 g/dL (13.0-16.5); Lymphocyte # 1.05 X10^3/ul (0.83-4.51); Lymphocyte % 17.6 % (19-41); Mean Corp Hgb Conc 32.3 g/dL (32-36); Mean Corpuscular Hgb 28.6 pg (27.0-32.0); Mean Corpuscular Volume 88.5 fL (80-94); Mean Platelet Vol. 9.4 fl (6.2-12.0); Monocyte# 0.49 X10^3/uL; Monocyte% 8.2 % (0-10); NRBC Flagged by Analyzer 0 % (0-5); Neutrophil # 4.31 X10^3/uL (2.7-7.7); Neutrophil % 72.6 % (47-70); Platelet Count 207 K/mm3 (150-450); RBC Distribution Width CV 12.9 % (11.6-14.6); RBC Distribution Width SD 41.5 fl (35.1-43.9); Red Blood Count 3.64 M/mm3 (4.6-6.2)
[2023-10-25 14:02] LABS: ALB/GLOB Ratio 1.1 RATIO (0.9-2.4); AST(SGOT) 19 U/L (15-37); Alanine Aminotransfer ALT/SGPT 25 U/L (16-61); Albumin, Serum 3.6 g/dL (3.2-5.0); Alkaline Phosphatase 48 U/L (45-117); Anion Gap 4 (5-15); BUN 27 mg/dL (7-18); BUN/Creat Ratio 20.5 RATIO (10-20); Calcium,Total 9.3 mg/dL (8.5-10.1); Chloride 112 mmol/L (98-107); Creatinine, Serum 1.32 mg/dL (0.70-1.30); EST Glomerular Filtration Rate 56 mL/min (>60); Est Glom Filt Rate - Afr Amer 67 mL/min (>60); Globulin 3.2 g/dL (2.2-4.2); Glucose 125 mg/dL (74-106); Potassium 3.7 mmol/L (3.5-5.1); Protein, Total 6.8 g/dL (6.4-8.2); Sodium Level 143 mmol/L (136-145)
[2023-10-25 14:09] LABS: Alcohol, Blood (Medical)-Serum < 3.0 mg/dL
[2023-10-25] MEDS: 0.9% Normal Saline (1000mL) 1,000 ML 999 ML IV (14:22)
[2023-10-25 14:27] VITALS: BMI 22.8
[2023-10-25 15:40] VITALS: BP 145/96; PULSE 74; RESP 16; TEMP 37.1; O2SAT 94
--- NOTE | 2023-10-25 16:40 | PCM.HP.STD ---
HPI - General General Date of Admission: 10/25/23 Date of Service: 10/25/23 Chief Complaint: Concerns for safety at home HPI Narrative DELL CHAN, is a 78-year-old female history of CML, GERD, secondary pulmonary hypertension, hypertension, CAD, BPH, Alzheimer's dementia who was brought in to [facility] ED 10/25/2023 after being pink slipped by [facility]. Deputies were contacted by patient's because she walked into his room and he had all of the guns out and she asked him to put them away and he did not want to. Reportedly not suicidal or homicidal but is confused with his dementia and she feels he is not safe at home and he has made comments about seeing things that are not there and will have nonsensical conversations, unable to drive and also wanders around the house. Lab workup thus far unremarkable and given lack of current SI/HI was not felt in ED that patient needed Sarah psych evaluation but requesting placement for patient does not feel he is safe to go home so hospitalist contacted for admission. History obtained primarily from documentation and report, at bedside patient can answer some questions correctly but mostly is nonsensical, denied ever having thoughts of hurting anyone else and initially did not answer question directly when asked about hurting himself but ultimately said no when asked again but is very tangential answers. He reports sometimes he gets headaches and is off balance but was not able to verbalize any other focal signs or symptoms indicating any other underlying medical etiology [facility] Medical History Atherosclerotic heart disease of [place] coronary artery without angina pectoris Behavioral and psychological symptoms of dementia Chronic myelogenous leukemia Essential (primary) hypertension Food sticks on swallowing GERD (gastroesophageal reflux disease) History of cholecystitis Hyperlipidemia Lump in throat Nonrheumatic mitral (valve) insufficiency Prostate cancer Secondary pulmonary arterial hypertension Sinus bradycardia Home Medications multivitamin with folic acid 400 mcg tablet 1 tab PO DAILY 08/09/13 [History Last Taken 10/25/23] sildenafil (pulm.hypertension) 20 mg tablet 20 mg PO .COMPLEX 10/02/17 [History Last Taken Unknown] guaifenesin 600 mg tablet, extended release 12 hr (Mucinex) 600 mg PO BID PRN congestion 07/05/21 [History Last Taken Unknown] bosutinib 500 mg tablet 500 mg PO DAILY 02/17/23 [History Last Taken Unknown] tamsulosin 0.4 mg capsule (Flomax) 0.4 mg PO DAILY 02/17/23 [History Last Taken 10/24/23] lisinopril 20 mg tablet 20 mg PO BID #180 tabs 03/12/23 [Rx Last Taken 10/25/23] nitroglycerin 0.4 mg sublingual tablet 0.4 mg sublingual Q5M PRN Chest Pain #25 tabs 06/04/23 [Rx Last Taken Unknown] rosuvastatin 10 mg tablet See Rx Instructions .Route .COMPLEX #90 tabs 08/19/23 [Rx Last Taken 10/24/23] Allergy/AdvReac Type Severity Reaction Status Date / Time No Known Allergies Allergy Verified 10/25/23 13:16 Family History Brother CAD (coronary artery disease) Myocardial infarction Alzheimer's dementia Brother , Age 63 Cancer Mother Cancer Breast cancer Father Alzheimer's dementia Surgical History H/O coronary artery bypass surgery (08/02/04) H/O knee surgery H/O laminectomy History of bone marrow biopsy History of cholecystectomy History of coronary artery stent placement (03/19/16) History of esophagogastroduodenoscopy (EGD) History of right inguinal hernia repair History of tonsillectomy History of transurethral resection of prostate (2012) Iliac artery bleed Social History Smoking Status: Never smoker alcohol intake: current alcohol intake frequency: a few times a month Alcohol type: beer caffeine: No ROS ROS Narrative Unable to fully obtain secondary to his mental status, did report sometimes he gets headaches and sometimes feels off balance Vital Signs Vital Signs Vital Signs: 10/25/23 13:12 10/25/23 15:40 Temperature 98 F 98.7 F Temperature Source Temporal Pulse Rate 62 74 Respiratory Rate 18 16 Blood Pressure 150/64 H 145/96 H Blood Pressure Mean 92 112 Pulse Ox 99 94 Oxygen Delivery Method Room Air Weight Weight: 66 kg Body Mass Index (BMI) 22.8 Physical Exam Narrative General: Alert, able to say the year but unable to answer other questions directly, no apparent distress HEENT: Atraumatic, normocephalic Eyes: Anicteric, normal conjunctiva, extraocular movements grossly intact Neck: Supple Respiratory: Clear to auscultation bilaterally, normal respiratory effort Cardiovascular: Regular rate and rhythm GI: Soft, nontender, nondistended Extremities: No edema Musculoskeletal: Moving all extremities Neuro: No overt focal neurological deficits Skin: No rashes appreciated Psych: Attempts to be cooperative Results Lab / Micro Data 10/25/23 13:30 10/25/23 13:30 Labs: Laboratory Results - last 24 hr 10/25/23 13:30: WBC 6.0, RBC 3.64 L, Hgb 10.4 L, Hct 32.2 L, MCV 88.5, MCH 28.6, MCHC 32.3, RDW Std Deviation 41.5, RDW Coeff of Lidia 12.9, Plt Count 207, MPV 9.4, Immature Gran % (Auto) 0.300, Neut % (Auto) 72.6 H, Lymph % (Auto) 17.6 L, [place] % (Auto) 8.2, Eos % (Auto) 0.8, Baso % (Auto) 0.5, Absolute Neuts (auto) 4.3, Absolute Lymphs (auto) 1.05, Nucleated RBC % 0, Sodium 143, Potassium 3.7, Chloride 112 H, Carbon Dioxide 27.0, Anion Gap 4 L, BUN 27 H, Creatinine 1.32 H, Est GFR (MDRD) Af Amer 67, Est GFR (MDRD) Non-Af 56 L, BUN/Creatinine Ratio 20.5 H, Glucose 125 H, Calcium 9.3, Total Bilirubin 0.30, AST 19, ALT 25, Alkaline Phosphatase 48, Total Protein 6.8, Albumin 3.6, Globulin 3.2, Albumin/Globulin Ratio 1.1, Ethyl Alcohol < 3.0 Imaging Radiology Impression Brain CT 10/25/23 13:27 IMPRESSION: Chronic involutional changes of the brain. Electronically Signed: Gonsalo Richards MD at 15:10 EST , Assessment & Plan Assessment/Plan (1) Alzheimer's dementia: QUALIFIERS: Alzheimer's disease onset: unspecified onset Dementia behavioral or psychological symptom: without behavioral, psychotic, or mood disturbance or anxiety Dementia severity: unspecified severity Qualified Code(s): G30.9 - Alzheimer's disease, unspecified; F02.80 - Dementia in other diseases classified elsewhere, unspecified severity, without behavioral disturbance, psychotic disturbance, mood disturbance, and anxiety (2) Chronic myelogenous leukemia: (3) Essential (primary) hypertension: (4) H/O coronary artery bypass surgery: (5) Secondary pulmonary arterial hypertension: (6) Visual hallucinations: (7) BPH (benign prostatic hyperplasia): PLAN: Plan #Failure to thrive/dementia w/ behavioral disturbance on top of his chronic Alzheimer's dementia - unable to care for pt at home but no SI/HI reported at present though there had been concerns of some possible SI at home this has not been reported again -Spoke w/ SW, pt to be admitted and can begin looking for placement Friday -Given worsening of hallucinations and the question of some possible SI at home before coming in it was still advised that we get Sarah psych to evaluate and if cleared can pursue placement in a memory unit -Will check UA, TSH, B12, folate -Will schedule Risperdal while patient in hospital to help with behaviors and schedule melatonin nightly -EKG w/ NSR HR 52 and qtc 398 #Cr elevation -Unclear LAURI versus CKD, no previous value since 2017 and today is 1.32, did receive some fluids in the ED, repeat in the a.m. #Chronic BPH with obstruction -Continue home medications # Pulmonary hypertension -Continue present medications # CML -Continue home bosutinib #Hx CAD -w/ CABG and stenting -Continue statin #DVT ppx: Lovenox subcu Roseline Allen MD Time spent in the patient's overall evaluation,decision-making process, review of diagnostic data, adjustment of management, discussion with other providers, nursing nursing and ancillary staff involved in patient's care documentation, 58 minutes Charges/Coding Visit Charges Inpatient E&M: 28569 Init Hosp L2
[2023-10-25 16:45] LABS: Bacteria 0 SEEN /hpf (None Seen); Mucous, Urine 0 SEEN /hpf (<or=2+); Red Blood Cells-Urine 0 SEEN /hpf (0-5); Squamous Epithelial Cells - UA 0 SEEN /hpf (0-5); White Blood Cells 0 SEEN /hpf (0-5)
[2023-10-25 16:53] LABS: Color, Urine Yellow (Yellow); Glucose, Dipstick Normal (Normal); Ketone-Dipstick Negative (Negative); Leukocyte Esterase-Dipstick Negative /ul (Negative); Nitrite-Dipstick Negative (Negative); Occult Blood-Urine Negative /ul (Negative); Protein-Dipstick Negative (Negative); Urine Bilirubin Dipstick Negative (Negative); Urine Clarity Clear (Clear); Urine Urobilinogen Normal (Normal); Urine pH 6.5 (5.0 - 8.0)
[2023-10-25 17:03] LABS: Amphetamine Urine VISTA NEGATIVE (<1000 ng/mL); Barbiturate Urine VISTA NEGATIVE (< 200 ng/mL); Benzodiazepine Urine VISTA NEGATIVE (< 200 ng/mL); Cocaine Urine VISTA NEGATIVE (< 300 ng/mL); Ecstacy Urine VISTA NEGATIVE (< 500 ng/mL); Methadone Urine VISTA NEGATIVE (< 300 ng/mL); PCP Urine VISTA NEGATIVE (< 25 ng/mL); THC Urine VISTA NEGATIVE (< 50 ng/mL); Vista UDS pH Range 5
--- NOTE | 2023-10-25 18:42 | ED.RN ---
crisis called to evaluate, chart faxed.
[2023-10-25 18:47] VITALS: BP 132/89; PULSE 69; RESP 14; O2SAT 95
--- NOTE | 2023-10-25 20:09 | ED.RN ---
Crisis came to see patient in ER. [employer] states per her assessment, patient is not suicidal or homicidal and does not need psychiatric placement. She feels he would benefit from jail placement for dementia.
[2023-10-25 20:37] VITALS: BMI 24.6
[2023-10-25 20:45] VITALS: BP 190/66; PULSE 42; RESP 17; TEMP 36.4; O2SAT 99
--- NOTE | 2023-10-25 21:11 | NURSING ---
pt unable to answer questions example nurse:do you have any open wounds on your skin? pt:oh yes on my right foot, ankle, trying to heal them for 71 years they are closed, then they open again-upon exam pt has no open areas BLE-pt was able to feed him self a yogurt, was able to swallow ensure thru straw/cup and hold it bed exit is set after describe to pt how to call for help and not to get up by himself
[2023-10-25] MEDS: Haloperidol Lactate 5 MG/ML Vial 2 MG IV ×2 (21:43→22:13)
[2023-10-25] MEDS: 0.9% Saline Lock 10 ML Syringe IV ×2 (21:43→22:13)
--- NOTE | 2023-10-25 21:47 | NURSING ---
aware that we can not put a heart monitor on pt he is to aggitated at this time. ok.
--- NOTE | 2023-10-25 21:52 | NURSING ---
pt has become very agitated, refusing to get back in bed or chair, swinging at staff, verbally abusing staff in room, attempting to keep pt safe from falls-pt states he is walking home, offerred to call for pt and he threw punch towards staff
--- NOTE | 2023-10-25 21:54 | NURSING ---
pt refusing all oral meds at this time
--- NOTE | 2023-10-25 22:00 | PCM.HOSP.N ---
Hospitalist Note Severe agitation, recurrent. Had sitter in the ED. Will add low dose haldol and continue to monitor. May need to increase home BID risperidol.
--- NOTE | 2023-10-25 22:31 | NURSING ---
pt resting on back -bed exit is on, pt appears to be sleeping, music playing on remote
--- NOTE | 2023-10-25 22:50 | NURSING ---
pt awakens, refuses meds offerred (resperidol), argumentative about being able to walk home and wants to know if is in kitchen-explained to pt that he is in hospital
[2023-10-26 00:43] VITALS: RESP 16; O2SAT 98
[2023-10-26 01:53] VITALS: BP 156/82; PULSE 58; RESP 18; TEMP 36.9; O2SAT 100
[2023-10-26] MEDS: Tamsulosin HCl 0.4 MG Capsule 0.400000000000000022 MG PO (01:56)
[2023-10-26] MEDS: MELATONIN 10 MG TABLET PO ×2 (01:56→20:57)
[2023-10-26] MEDS: Lisinopril 20 MG Tablet PO (01:57)
[2023-10-26] MEDS: RisperiDONE 0.5 MG Tablet PO ×5 (01:58→22:31)
--- NOTE | 2023-10-26 02:05 | NURSING ---
pt awakens, asking if we might have a restroom facility -pt assisted to dangling position on bed and assisted to BR-pt unsteady on feet but allows nurse to assist at this time and given privacy after he was seated on commode-shown how to pull cord when finished but pt is heard in BR washing hands without utilizing cord prior to getting up as instructed-pt is pleasant and cooperative at this time-pt given a few bites of yogurt and drank water w/his meds at this time pt covered back up and quickly returns to sleep
[2023-10-26 03:34] LABS: Absolute Lymphocyte Count 1.48 X10^3/uL (0.83-4.51); Absolute Neutrophil Count 3.2 X10^3/uL (2.0-7.7); Basophil# 0.04 X10^3/uL; Basophil% 0.8 % (0-1); Eosinophil# 0.08 X10^3/uL; Eosinophils% 1.5 % (0-5); Hematocrit 28.2 % (40-54); Hemoglobin 9.5 g/dL (13.0-16.5); Lymphocyte # 1.48 X10^3/ul (0.83-4.51); Lymphocyte % 28.1 % (19-41); Mean Corp Hgb Conc 33.7 g/dL (32-36); Mean Corpuscular Hgb 29.6 pg (27.0-32.0); Mean Corpuscular Volume 87.9 fL (80-94); Mean Platelet Vol. 9.4 fl (6.2-12.0); Monocyte# 0.46 X10^3/uL; Monocyte% 8.7 % (0-10); NRBC Flagged by Analyzer 0 % (0-5); Neutrophil % 60.9 % (47-70); Platelet Count 181 K/mm3 (150-450); RBC Distribution Width CV 12.9 % (11.6-14.6); RBC Distribution Width SD 41.4 fl (35.1-43.9); Red Blood Count 3.21 M/mm3 (4.6-6.2); White Blood Count 5.3 K/mm3 (4.4-11.0)
[2023-10-26 04:06] LABS: ALB/GLOB Ratio 1.1 RATIO (0.9-2.4); AST(SGOT) 17 U/L (15-37); Alanine Aminotransfer ALT/SGPT 23 U/L (16-61); Albumin, Serum 3.1 g/dL (3.2-5.0); Alkaline Phosphatase 42 U/L (45-117); Anion Gap 3 (5-15); BUN 22 mg/dL (7-18); BUN/Creat Ratio 22.7 RATIO (10-20); Calcium,Total 8.3 mg/dL (8.5-10.1); Chloride 114 mmol/L (98-107); Creatinine, Serum 0.97 mg/dL (0.70-1.30); EST Glomerular Filtration Rate 79 mL/min (>60); Est Glom Filt Rate - Afr Amer 96 mL/min (>60); Estimated Creatinine Clearance 57.73 ml/min; Globulin 2.8 g/dL (2.2-4.2); Glucose 113 mg/dL (74-106); Potassium 3.8 mmol/L (3.5-5.1); Protein, Total 5.9 g/dL (6.4-8.2); Sodium Level 145 mmol/L (136-145); Thyroid Stim Hormone (TSH) 7.62 uIU/mL (0.358-3.74)
--- NOTE | 2023-10-26 06:02 | NURSING ---
pt sleeping presently-will awaken periodically and sit up -pt reassurred he can go back to sleep, that he is at the hospital and he is safe he will quickly return to sleep-bed exit is on-sitter has been in room most of night
--- NOTE | 2023-10-26 07:41 | PCM.PN.HOSP ---
Reason for Visit Reason for Visit: Diagnoses Chronic myeloid leukemia, BCR/ABL-positive, not having achieved remission (10/25/23) Dementia in other diseases classified elsewhere, unspecified severity, without behavioral disturbance, psychotic disturbance, mood disturbance, and anxiety (10/25/23) Alzheimer's disease, unspecified (10/25/23) Essential (primary) hypertension (10/25/23) Secondary pulmonary arterial hypertension (10/25/23) Benign prostatic hyperplasia without lower urinary tract symptoms (10/25/23) Visual hallucinations (10/25/23) Presence of aortocoronary bypass graft (10/25/23) Objective Data Objective Data Vital Signs: Vital Signs Temp Pulse Resp BP Pulse Ox O2 Del Method 98.5 F 58 L 18 156/82 H 100 Room Air 10/26/23 01:53 10/26/23 01:53 10/26/23 01:53 10/26/23 01:53 10/26/23 01:53 10/26/23 01:53 Oxygen Delivery Method Room Air Weight: 157 lb 6.561 oz Body Mass Index (BMI) 24.6 Intake & Output: Intake and Output for Last 24 Hours 10/24/23 10/25/23 10/26/23 23:59 23:59 23:59 Intake Total 1000 / 1180 330 / 330 Balance 1000 / 1180 330 / 330 Lab / Micro Data 10/26/23 03:25 10/26/23 03:25 Labs: Laboratory Results - last 24 hr 10/25/23 13:30: WBC 6.0, RBC 3.64 L, Hgb 10.4 L, Hct 32.2 L, MCV 88.5, MCH 28.6, MCHC 32.3, RDW Std Deviation 41.5, RDW Coeff of Lidia 12.9, Plt Count 207, MPV 9.4, Immature Gran % (Auto) 0.300, Neut % (Auto) 72.6 H, Lymph % (Auto) 17.6 L, Castro % (Auto) 8.2, Eos % (Auto) 0.8, Baso % (Auto) 0.5, Absolute Neuts (auto) 4.3, Absolute Lymphs (auto) 1.05, Nucleated RBC % 0, Sodium 143, Potassium 3.7, Chloride 112 H, Carbon Dioxide 27.0, Anion Gap 4 L, BUN 27 H, Creatinine 1.32 H, Est GFR (MDRD) Af Amer 67, Est GFR (MDRD) Non-Af 56 L, BUN/Creatinine Ratio 20.5 H, Glucose 125 H, Calcium 9.3, Total Bilirubin 0.30, AST 19, ALT 25, Alkaline Phosphatase 48, Total Protein 6.8, Albumin 3.6, Globulin 3.2, Albumin/Globulin Ratio 1.1, Ethyl Alcohol < 3.0 10/25/23 16:35: Urine Color Yellow, Urine Clarity Clear, Urine pH 6.5, Ur Specific [place] 1.010, Urine Protein Negative, Urine Glucose (UA) Normal, Urine Ketones Negative, Urine Occult Blood Negative, Urine Nitrite Negative, Urine Bilirubin Negative, Urine Urobilinogen Normal, Ur Leukocyte Esterase Negative, Urine RBC 0 SEEN, Urine WBC 0 SEEN, Ur Squamous Epith Cells 0 SEEN, Urine Bacteria 0 SEEN, Urine Mucus 0 SEEN, Urine Opiates Screen NEGATIVE, Urine Methadone Screen NEGATIVE, Ur Barbiturates Screen NEGATIVE, Ur Phencyclidine Scrn NEGATIVE, Ur Amphetamines Screen NEGATIVE, MDMA (Ecstasy) Screen NEGATIVE, U Benzodiazepines Scrn NEGATIVE, Urine Cocaine Screen NEGATIVE, U Cannabinoids Screen NEGATIVE, Ur Drug Screen Comment 10/26/23 03:25: WBC 5.3, RBC 3.21 L, Hgb 9.5 L, Hct 28.2 L, MCV 87.9, MCH 29.6, MCHC 33.7, RDW Std Deviation 41.4, RDW Coeff of Lidia 12.9, Plt Count 181, MPV 9.4, Immature Gran % (Auto) 0.000, Neut % (Auto) 60.9, Lymph % (Auto) 28.1, Castro % (Auto) 8.7, Eos % (Auto) 1.5, Baso % (Auto) 0.8, Absolute Neuts (auto) 3.2, Absolute Lymphs (auto) 1.48, Nucleated RBC % 0, Sodium 145, Potassium 3.8, Chloride 114 H, Carbon Dioxide 28.0, Anion Gap 3 L, BUN 22 H, Creatinine 0.97, Estim Creat Clear Calc 57.73, Est GFR (MDRD) Af Amer 96, Est GFR (MDRD) Non-Af 79, BUN/Creatinine Ratio 22.7 H, Glucose 113 H, Calcium 8.3 L, Magnesium 2.0, Total Bilirubin 0.30, AST 17, ALT 23, Alkaline Phosphatase 42 L, Total Protein 5.9 L, Albumin 3.1 L, Globulin 2.8, Albumin/Globulin Ratio 1.1, Folate 16.00, TSH 7.62 H Radiography Diagnostic Testing: Radiology Impression Brain CT 10/25/23 13:27 IMPRESSION: Chronic involutional changes of the brain. Electronically Signed: Gonsalo Richards MD at 15:10 EST , Physical Exam Narrative Seen and examined. Patient knows his name and date of . Patient does not remember all bowel what happened 3 to 4 days ago. He states he had some suicidal ideation 3 to 4 days ago but could not describe but was talking irrelevant that he met someone's friends and wanted to play football unclear what he meant. Physical exam General: Alert, Oriented x2, Cooperative HEENT: Atraumatic, PERRLA, EOMI, Normocephalic Oral: No Gingival or Mucosal Lesions/ Ulcerations Neck: Supple, No JVD, Negative Carotid Bruits Chest wall/Lungs: Air entry diminished in bilateral lung bases. No crepitation/rhonchi Cardiovascular: Regular rate, Regular Rhythm, Normal S1, Normal S2, No M/G/R Abdomen: Bowel Sounds Present, Soft, Non Tender, Non-Distended : No dysuria. No renal angle tenderness. No suprapubic tenderness. Extremities: No edema, Capillary Refill Less than 3 Seconds Skin: Old scar and scratch over right knee leg Musculoskeletal: No Tenderness to Palpation of Joints or Extremities Neurological: Cranial nerves II-XII grossly intact, DTR 2+/4. No acute focal neurological deficit. Psych/Mental Status: Visual hallucinations. Flat affect, amnesia and dementia. Assessment & Plan Assessment/Plan (1) Alzheimer's dementia: QUALIFIERS: Alzheimer's disease onset: unspecified onset Dementia behavioral or psychological symptom: without behavioral, psychotic, or mood disturbance or anxiety Dementia severity: unspecified severity Qualified Code(s): G30.9 - Alzheimer's disease, unspecified; F02.80 - Dementia in other diseases classified elsewhere, unspecified severity, without behavioral disturbance, psychotic disturbance, mood disturbance, and anxiety (2) Chronic myelogenous leukemia: (3) Essential (primary) hypertension: (4) H/O coronary artery bypass surgery: (5) Secondary pulmonary arterial hypertension: (6) Visual hallucinations: (7) BPH (benign prostatic hyperplasia): PLAN: Plan This 78-year-old gentleman with history of Alzheimer's dementia was admitted after he was pink slipped by [facility]. Deputies were contacted by the patient's . As per ED physician, patient not suicidal, homicidal but confused from dementia and his did not feel he was safe at home. He also had hallucinations and nonsensical conversation. He is known to wander from the home, unable to drive. #Failure to thrive/dementia w/ behavioral disturbance on top of his chronic Alzheimer's dementia There was some concern of suicidal ideation 3 to 4 days ago but patient denies now. Patient has visual hallucinations. Will get Sarah psych evaluation and if cleared and then placement in dementia unit. -Spoke w/ SW, pt to be admitted and can begin looking for placement Friday UA shows benign. U tox negative. TSH 7.62. Folate normal. B12 pending. Serum magnesium 2.0. Liver chemistry normal, low alkaline phosphatase. Serum ceruloplasmin and plasma copper ordered although seems unlikely Ej disease although onset of neuropsychiatric symptoms unclear. Usually Ej disease patients are young adults in about 40s with presentation of lacking in school achievement/grades, impaired attention/inattention, lack of focus or ADHD. Free T4 ordered. .Schedule Risperdal while patient in hospital to help with behaviors and schedule melatonin nightly -EKG w/ NSR HR 52 and qtc 398 #Cr elevation -Unclear LAURI versus CKD, no previous value since 2017 and today is 1.32, did receive some fluids in the ED, repeat in the a.m. 10/26: BUNs/creatinine on admission 27/09.32. Repeat shows improvement 22/0.97. #Chronic BPH with obstruction -Continue home medications # Pulmonary hypertension -Continue present medications # CML -Continue home bosutinib #Hx CAD -w/ CABG and stenting -Continue statin #DVT ppx: Lovenox subcu Charges/Coding Visit Charges Inpatient E&M: 34466 Subs Hosp L2
[2023-10-26 08:52] VITALS: BP 158/79; PULSE 51; RESP 18; TEMP 36.5; O2SAT 98
[2023-10-26] MEDS: Acetaminophen 325 MG Tablet 650 MG PO (08:57)
[2023-10-26] MEDS: Enoxaparin 40 MG/0.4 ML Syringe SC (08:57)
[2023-10-26 17:24] VITALS: BP 176/76; PULSE 44; RESP 18; TEMP 36.6; O2SAT 100
[2023-10-26 20:52] VITALS: BP 171/62; PULSE 50; RESP 16; TEMP 36.4; O2SAT 98
[2023-10-26] MEDS: Atorvastatin Calcium 20 MG Tablet PO (20:57)
[2023-10-26] MEDS: Haloperidol Lactate 5 MG/ML Vial 2 MG IM (23:39)
--- NOTE | 2023-10-27 00:02 | PCM.HOSP.N ---
Hospitalist Note Again severe agitation, will increase risperidol to 1 mg BID and will give additional dose haldol now 2 mg x 1.
[2023-10-27] MEDS: Haloperidol Lactate 5 MG/ML Vial 2 MG IM ×2 (00:10→06:03)
--- NOTE | 2023-10-27 05:40 | NURSING ---
Pt refused his am vitals and physical assessment. I tried to reorient him and see if he would let me do them but he started getting agitated and told me not to touch him.
[2023-10-27 08:08] LABS: Vitamin B12 479 pg/mL (211-911)
[2023-10-27] MEDS: Tamsulosin HCl 0.4 MG Capsule 0.400000000000000022 MG PO (08:12)
[2023-10-27] MEDS: Enoxaparin 40 MG/0.4 ML Syringe SC (08:12)
[2023-10-27] MEDS: Lisinopril 20 MG Tablet PO (08:12)
[2023-10-27] MEDS: RisperiDONE 1 MG Tablet PO ×2 (08:15→20:28)
[2023-10-27 08:23] VITALS: BP 214/72; PULSE 54; RESP 16; TEMP 36.7; O2SAT 99
--- NOTE | 2023-10-27 10:45 | CASEMGMT ---
Met with patients to complete PATEL form. PATEL form explained to who voiced understanding and signed form. Original form placed in pt?s chart and copy provided to?patients . Michelle Silver, Discharge Planning Asst
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
--- NOTE | 2023-10-27 11:58 | PCM.PN.HOSP ---
Reason for Visit Reason for Visit: Diagnoses Chronic myeloid leukemia, BCR/ABL-positive, not having achieved remission (10/25/23) Dementia in other diseases classified elsewhere, unspecified severity, without behavioral disturbance, psychotic disturbance, mood disturbance, and anxiety (10/25/23) Alzheimer's disease, unspecified (10/25/23) Essential (primary) hypertension (10/25/23) Secondary pulmonary arterial hypertension (10/25/23) Benign prostatic hyperplasia without lower urinary tract symptoms (10/25/23) Visual hallucinations (10/25/23) Presence of aortocoronary bypass graft (10/25/23) Objective Data Objective Data Vital Signs: Vital Signs Temp Pulse Resp BP Pulse Ox O2 Del Method 98.1 F 54 L 16 214/72 H 99 Room Air 10/27/23 08:23 10/27/23 08:23 10/27/23 08:23 10/27/23 08:23 10/27/23 08:23 10/27/23 08:23 Oxygen Delivery Method Room Air Weight: 157 lb 6.561 oz Body Mass Index (BMI) 24.6 Intake & Output: Intake and Output for Last 24 Hours 10/25/23 10/26/23 10/27/23 23:59 23:59 23:59 Intake Total 1000 / 1180 730 / 730 200 / 200 Balance 1000 / 1180 730 / 730 200 / 200 Lab / Micro Data 10/26/23 03:25 10/26/23 03:25 Labs: Laboratory Results - last 24 hr 10/26/23 03:25: Vitamin B12 479 10/27/23 05:20: Free T4 0.90 Physical Exam Narrative Seen and examined. Patient seems to be on baseline. His states he is more quite impressionable also seen walking on the hallway. Patient received Haldol 2 mg IM last night because of agitation. His wants to take him home. Patient knows his name and date of . He states he had some suicidal ideation 3 to 4 days ago but could not describe but was talking irrelevant that he met someone's friends and wanted to play football unclear what he meant. Physical exam General: Alert, Oriented x3, Cooperative HEENT: Atraumatic, PERRLA, EOMI, Normocephalic Oral: No Gingival or Mucosal Lesions/ Ulcerations Neck: Supple, No JVD, Negative Carotid Bruits Chest wall/Lungs: Air entry diminished in bilateral lung bases. No crepitation/rhonchi Cardiovascular: Regular rate, Regular Rhythm, Normal S1, Normal S2, No M/G/R Abdomen: Bowel Sounds Present, Soft, Non Tender, Non-Distended : No dysuria. No renal angle tenderness. No suprapubic tenderness. Extremities: No edema, Capillary Refill Less than 3 Seconds Skin: Old scar and scratch over right knee leg Musculoskeletal: No Tenderness to Palpation of Joints or Extremities Neurological: Cranial nerves II-XII grossly intact, DTR 2+/4. No acute focal neurological deficit. Psych/Mental Status: Visual hallucinations. Flat affect, amnesia and Alzheimer's dementia. Assessment & Plan Assessment/Plan (1) Alzheimer's dementia: QUALIFIERS: Alzheimer's disease onset: unspecified onset Dementia severity: unspecified severity Dementia behavioral or psychological symptom: without behavioral, psychotic, or mood disturbance or anxiety Qualified Code(s): G30.9 - Alzheimer's disease, unspecified; F02.80 - Dementia in other diseases classified elsewhere, unspecified severity, without behavioral disturbance, psychotic disturbance, mood disturbance, and anxiety (2) Chronic myelogenous leukemia: (3) Essential (primary) hypertension: (4) H/O coronary artery bypass surgery: (5) Secondary pulmonary arterial hypertension: (6) Visual hallucinations: (7) BPH (benign prostatic hyperplasia): PLAN: Plan This 78-year-old gentleman with history of Alzheimer's dementia was admitted after he was pink slipped by [facility]. Deputies were contacted by the patient's . As per ED physician, patient not suicidal, homicidal but confused from dementia and his did not feel he was safe at home. He also had hallucinations and nonsensical conversation. He is known to wander from the home, unable to drive. #Failure to thrive/dementia w/ behavioral disturbance on top of his chronic Alzheimer's dementia There was some concern of suicidal ideation 3 to 4 days ago but patient denies now. Patient has visual hallucinations. Will get Sarah psych evaluation and if cleared and then placement in dementia unit. -Spoke w/ SW, pt to be admitted and can begin looking for placement Friday UA shows benign. U tox negative. TSH 7.62. Folate normal. B12 pending. Serum magnesium 2.0. Liver chemistry normal, low alkaline phosphatase. Serum ceruloplasmin and plasma copper ordered although seems unlikely Ej disease although onset of neuropsychiatric symptoms unclear. Usually Ej disease patients are young adults in about 40s with presentation of lacking in school achievement/grades, impaired attention/inattention, lack of focus or ADHD. Free T4 ordered. .Schedule Risperdal while patient in hospital to help with behaviors and schedule melatonin nightly -EKG w/ NSR HR 52 and qtc 398 10/27: Patient on risperidone 1 mg twice daily. Discussed with the and she states patient seems responding well to risperidone. In the past, his psychiatrist Dr. Crisostomo had tried Rexulti and quetiapine but has not worked. Follow the psychiatrist. She requested if the patient can go home on that risperidone. Patient will need 24 hours of sitter and without requiring Haldol IM. #Cr elevation -Unclear LAURI versus CKD, no previous value since 2016 and today is 1.32, did receive some fluids in the ED, repeat in the a.m. 10/26: BUNs/creatinine on admission 27/1.32. Repeat shows improvement 22/0.97. #Chronic BPH with obstruction -Continue home medications # Pulmonary hypertension -Continue present medications # CML -Continue home bosutinib #Hx CAD -w/ CABG and stenting -Continue statin #DVT ppx: Lovenox subcu Charges/Coding Visit Charges Inpatient E&M: 33991 Subs Hosp L2
[2023-10-27 12:58] VITALS: BP 188/76; PULSE 57
[2023-10-27] MEDS: 0.9% Saline Lock 10 ML Syringe IV ×2 (12:58→20:27)
[2023-10-27] MEDS: hydrALAZINE 20 MG/ML Vial 10 MG IV (12:58)
[2023-10-27 15:09] VITALS: BP 110/61; PULSE 78; RESP 16; TEMP 36.7; O2SAT 99
--- NOTE | 2023-10-27 15:38 | CHAPLAIN ---
Type of Pastoral Visit _x__ Initial Visit ___ Follow-up Visit ___ On-call Visit ___ General Patient Visit ___ Spiritual Assessment ___ Family Conference ___ Bereavement ___ Rapid Response ___ Code Blue ___ Other (describe below) Pastoral Care Referral From _x__ Patient ___ Family ___ Nurse ___ Physician ___ Carpenter Mold ___ Paste Up Copy Camera Operator ___ Other (describe below) Sacrament/Intervention _x__ Active listening ___ Anointing ___ Sikhism ___ Bereavement ___ Communion ___ Marjan exploration ___ _x__ Life review _x__ Prayer ___ Reconciliation ___ Sacrament of Sick _x__ Supportive presence ___ Wedding ___ Other (describe below) Pastoral Comments RN was finishing taking vitals as this de icer finisher walked into room to make visit; sat with pt who is sitting in his chair; pt is willing to talk and begins conversation about dancing and other random topics; questions asked of patient to direct his thinking and pt answers them although at some points not sure of what he was trying to state; pt is pleasant and even laughs a couple of times at his own comments; this de icer finisher just went with the flow of his thoughts and make corresponding comments; pt spoke of his large family that got along very well; pt was quick to accept a prayer and made the sign of the cross on his own;
[2023-10-27 20:25] VITALS: BP 125/58; PULSE 50; RESP 18; TEMP 36.6; O2SAT 97
[2023-10-27] MEDS: Atorvastatin Calcium 20 MG Tablet PO (20:27)
[2023-10-27] MEDS: MELATONIN 10 MG TABLET PO (20:28)
[2023-10-28 02:20] VITALS: BP 151/72; PULSE 60; RESP 18; TEMP 36.7; O2SAT 100
[2023-10-28] MEDS: RisperiDONE 0.5 MG Tablet PO (03:07)
--- NOTE | 2023-10-28 08:03 | NURSING ---
called at home d/t pt being agitated and hitting. will be in shortly, polisher hand currently in room w/pt as he continues to try and walk the halls and going into other patients rooms.
--- NOTE | 2023-10-28 10:57 | DCINST_ITS ---
Discharge Instructions Diet Discharge Diet: No restrictions Activity Discharge Activity: Return to Normal Activity and May Not Drive Weight Bearing Status: Weight bearing as tolerated Dressing / Incision Call your doctor if you observe: Fever of 101 or Higher, Coldness, Increased Pain, Numbness or Tingling, Change in Color, Inability to urinate, Inability to have a bowel movement, Shortness of breath, Dizziness, Fainting spells, Swelling in the ankles, Chest pain, Prolonged hiccupping, Increased palpitations (irregular heartbeat) and Calf discomfort Follow Up Care When: IN 2 WEEKS Test Results: Test results from this visit will be discussed in further detail at your follow- up appointment, if applicable. Discharge Plan Admission Admit Date/Time: 10/27/23 12:28 Primary Reason for Your Visit: Alzheimer's dementia with gasca llucinations/psychotic features Attending Provider: Jose Jeter Primary Care Provider: Janet Green Consulting Providers: Roseline Allen Discharge Orders/Prescriptions Prescriptions: New sennosides-docusate sodium [Stool Softener-Stimulant Laxat] 8.6-50 mg Tablet 2 tab PO BID PRN PRN (Reason: Constipation) Qty: 0 0RF risperidone 1 mg Tablet 1 mg PO BID 30 Days Qty: 60 0RF Rx Instructions: Hold for sedation. Follow with Psychiatrist, Dr. Crisostomo Continued sildenafil (pulm.hypertension) 20 mg tablet 20 mg PO .COMPLEX Patient Comments: 20 mg PO 5 tablets prn: do not take within 24 hours of nitro Rx Instructions: 20 mg PO 5 tablets prn: do not take within 24 hours of nitro guaifenesin [Mucinex] 600 mg tablet extended release 12hr 600 mg PO BID PRN (Reason: congestion) bosutinib 500 mg tablet 500 mg PO DAILY Rx Instructions: must administer with a meal/food tamsulosin [Flomax] 0.4 mg capsule 0.4 mg PO DAILY multivitamin with folic acid 1 TABLET tablet 1 tab PO DAILY Patient Comments: multivitamin lisinopril 20 mg tablet 20 mg PO BID Qty: 180 3RF nitroglycerin 0.4 mg tablet, sublingual 0.4 mg SUBLINGUAL Q5M PRN (Reason: Chest Pain) Qty: 25 3RF rosuvastatin 10 mg tablet See Rx Instructions .ROUTE .COMPLEX Qty: 90 3RF Dose Instruction: Take 1 tablet by mouth once daily Rx Instructions: Take 1 tablet by mouth once daily Referrals / Follow Up: Janet Green MD [Primary Care Provider] - Within 2 Weeks Job Kraus DO [Med Staff - Stone Unloader] - Within 2 Weeks Disposition Disposition (needs filled in before D/C Order can be placed): Home Health Service
[2023-10-28] MEDS: Lisinopril 20 MG Tablet PO (10:58)
[2023-10-28] MEDS: Enoxaparin 40 MG/0.4 ML Syringe SC (10:59)
[2023-10-28] MEDS: RisperiDONE 1 MG Tablet PO (10:59)
[2023-10-28] MEDS: Tamsulosin HCl 0.4 MG Capsule 0.400000000000000022 MG PO (10:59)
[2023-10-28 11:00] VITALS: BP 146/66; PULSE 51; RESP 14; TEMP 36.4; O2SAT 100
--- NOTE | 2023-10-28 11:03 | PCM.DC.SUM ---
Providers Date of Admission: 10/27/23 Primary Care Physician: Dr. Janet Green MD Reason For Visit: DEMENTIA, FTT, CONCERNS FOR SAFETY AT HOME Diagnosis Discharge Diagnosis (1) Alzheimer's dementia: Status: Acute Code(s): G30.9 - Alzheimer's disease, unspecified; F02.80 - Dementia in other diseases classified elsewhere, unspecified severity, without behavioral disturbance, psychotic disturbance, mood disturbance, and anxiety Qualifiers: Alzheimer's disease onset: unspecified onset Dementia severity: unspecified severity Dementia behavioral or psychological symptom: without behavioral, psychotic, or mood disturbance or anxiety Qualified Code(s): G30.9 - Alzheimer's disease, unspecified; F02.80 - Dementia in other diseases classified elsewhere, unspecified severity, without behavioral disturbance, psychotic disturbance, mood disturbance, and anxiety (2) Chronic myelogenous leukemia: Status: Chronic Code(s): C92.10 - Chronic myeloid leukemia, BCR/ABL-positive, not having achieved remission (3) Essential (primary) hypertension: Status: Chronic Code(s): I10 - Essential (primary) hypertension (4) H/O coronary artery bypass surgery: Status: Chronic Code(s): Z95.1 - Presence of aortocoronary bypass graft (5) Secondary pulmonary arterial hypertension: Status: Chronic Code(s): I27.21 - Secondary pulmonary arterial hypertension (6) Visual hallucinations: Status: Acute Code(s): R44.1 - Visual hallucinations (7) BPH (benign prostatic hyperplasia): Status: Acute Code(s): N40.0 - Benign prostatic hyperplasia without lower urinary tract symptoms Plan This 78-year-old gentleman with history of Alzheimer's dementia was admitted after he was pink slipped by [facility]. Deputies were contacted by the patient's . As per ED physician, patient not suicidal, homicidal but confused from dementia and his did not feel he was safe at home. He also had hallucinations and nonsensical conversation. He is known to wander from the home, unable to drive. #Failure to thrive/dementia w/ behavioral disturbance on top of his chronic Alzheimer's dementia There was some concern of suicidal ideation 3 to 4 days ago but patient denies now. Patient has visual hallucinations. Will get Sarah psych evaluation and if cleared and then placement in dementia unit. -Spoke w/ SW, pt to be admitted and can begin looking for placement Friday UA shows benign. U tox negative. TSH 7.62. Folate normal. B12 pending. Serum magnesium 2.0. Liver chemistry normal, low alkaline phosphatase. Serum ceruloplasmin and plasma copper ordered although seems unlikely Ej disease although onset of neuropsychiatric symptoms unclear. Usually Ej disease patients are young adults in about 40s with presentation of lacking in school achievement/grades, impaired attention/inattention, lack of focus or ADHD. Free T4 ordered. .Schedule Risperdal while patient in hospital to help with behaviors and schedule melatonin nightly -EKG w/ NSR HR 52 and qtc 398 10/27: Patient on risperidone 1 mg twice daily. Discussed with the and she states patient seems responding well to risperidone. In the past, his psychiatrist Dr. Crisostomo had tried Rexulti and quetiapine but has not worked. Follow the psychiatrist. She requested if the patient can go home on that risperidone. Patient will need 24 hours of sitter and without requiring Haldol IM. 10/28: As per the patient's 's request, prescription given for risperidone 1 mg twice daily since this morning good on that medication regarding psychiatric symptoms of behavioral disturbance. I talked to patient's regarding the goals found by EMS as he was cleaning it. His said that she removed all the guns and gave it to neighbor. lock up worker and the crisis management team also confirmed that and cleared for the home discharge. Furthermore I called patient's PCP Dr. Janet Green and talk to him regarding the leisure for coming to hospital and admission Hospital course and plan of discharge as mentioned above. His wanted outpatient in daycare for an hour and social sciences chair will make arrangement. Patient is being discharged today. #Cr elevation -Unclear LAURI versus CKD, no previous value since 2016 and today is 1.32, did receive some fluids in the ED, repeat in the a.m. 10/26: BUNs/creatinine on admission 1.32. 10/28: Repeat BUNs/creatinine 22/0.97. Most likely it was LAURI which is resolved. #Chronic BPH with obstruction -Continue home medications # Pulmonary hypertension -Continue present medications # CML -Continue home bosutinib #Hx CAD -w/ CABG and stenting -Continue statin #DVT ppx: Lovenox subcu Discharge medication reconciliation done. Discharge follow-up instructions completed. Discharge process discussed with the patient and all questions were answered to patient's satisfaction. Follow with PCP in 1 to 2 weeks Total time spent, exact 35 minutes on discharge meds reconciliation, examination, coordination of care with nurses and ancillary staff, review of imaging and blood test and discussion with the patient on follow-up instructions. Medications at Discharge Home Medications multivitamin with folic acid 400 mcg tablet 1 tab PO DAILY 08/09/13 sildenafil (pulm.hypertension) 20 mg tablet 20 mg PO .COMPLEX 10/02/17 guaifenesin 600 mg tablet, extended release 12 hr (Mucinex) 600 mg PO BID PRN congestion 07/05/21 bosutinib 500 mg tablet 500 mg PO DAILY 02/17/23 tamsulosin 0.4 mg capsule (Flomax) 0.4 mg PO DAILY 02/17/23 lisinopril 20 mg tablet 20 mg PO BID #180 tabs 03/12/23 nitroglycerin 0.4 mg sublingual tablet 0.4 mg sublingual Q5M PRN Chest Pain #25 tabs 06/04/23 rosuvastatin 10 mg tablet See Rx Instructions .Route .COMPLEX #90 tabs 08/19/23 risperidone 1 mg tablet 1 mg PO BID 30 days #60 tabs 10/28/23 sennosides 8.6 mg-docusate sodium 50 mg tablet (Stool Softener-Stimulant Laxative) 2 tab PO BID PRN PRN Constipation #0 tabs 10/28/23 Physical Exam Narrative Seen and examined. Patient seems to be on baseline. As per the nurse he was little agitated and last night but they did not give any medication and the came he became more calm and quiet. Patient is behaving good. His will take him for outpatient daycare center for about an hour every day. Discussed with major case detective and social sciences chair and patient's PCP. Physical exam General: Alert, Oriented x3, Cooperative HEENT: Atraumatic, PERRLA, EOMI, Normocephalic Oral: No Gingival or Mucosal Lesions/ Ulcerations Neck: Supple, No JVD, Negative Carotid Bruits Chest wall/Lungs: Air entry diminished in bilateral lung bases. No crepitation/rhonchi Cardiovascular: Regular rate, Regular Rhythm, Normal S1, Normal S2, No M/G/R Abdomen: Bowel Sounds Present, Soft, Non Tender, Non-Distended : No dysuria. No renal angle tenderness. No suprapubic tenderness. Extremities: No edema, Capillary Refill Less than 3 Seconds Skin: Old scar and scratch over right knee leg Musculoskeletal: No Tenderness to Palpation of Joints or Extremities Neurological: Cranial nerves II-XII grossly intact, DTR 2+/4. No acute focal neurological deficit. Psych/Mental Status: Sometimes visual hallucinations. Flat affect, amnesia and Alzheimer's dementia. Weight / BMI Weight Weight: 157 lb 6.561 oz Body Mass Index (BMI) 24.6 ABG / Lab / Microbiology Data 10/26/23 03:25 10/26/23 03:25 D/C Instructions Discharge Diet: No restrictions Weight Bearing Status: Weight bearing as tolerated Call your doctor if you observe: Fever of 101 or Higher, Coldness, Increased Pain, Numbness or Tingling, Change in Color, Inability to urinate, Inability to have a bowel movement, Shortness of breath, Dizziness, Fainting spells, Swelling in the ankles, Chest pain, Prolonged hiccupping, Increased palpitations (irregular heartbeat) and Calf discomfort When: IN 2 WEEKS Meaningful Use Info Meaningful Use Diagnoses (Choose all that apply): None applicable Discharge Plan Admission Admit Date/Time: 10/27/23 12:28 Primary Reason for Your Visit: Alzheimer's dementia with hallucinations/psychotic features Attending Provider: Jose Jeter Primary Care Provider: Janet rGeen [employer]ing Providers: Roseline Allen Discharge Orders/Prescriptions Prescriptions: New sennosides-docusate sodium [Stool Softener-Stimulant Laxat] 8.6-50 mg Tablet 2 tab PO BID PRN PRN (Reason: Constipation) Qty: 0 0RF risperidone 1 mg Tablet 1 mg PO BID 30 Days Qty: 60 0RF Rx Instructions: Hold for sedation. Follow with Psychiatrist, Dr. Crisostomo Continued sildenafil (pulm.hypertension) 20 mg tablet 20 mg PO .COMPLEX Patient Comments: 20 mg PO 5 tablets prn: do not take within 24 hours of nitro Rx Instructions: 20 mg PO 5 tablets prn: do not take within 24 hours of nitro guaifenesin [Mucinex] 600 mg tablet extended release 12hr 600 mg PO BID PRN (Reason: congestion) bosutinib 500 mg tablet 500 mg PO DAILY Rx Instructions: must administer with a meal/food tamsulosin [Flomax] 0.4 mg capsule 0.4 mg PO DAILY multivitamin with folic acid 1 TABLET tablet 1 tab PO DAILY Patient Comments: multivitamin lisinopril 20 mg tablet 20 mg PO BID Qty: 180 3RF nitroglycerin 0.4 mg tablet, sublingual 0.4 mg SUBLINGUAL Q5M PRN (Reason: Chest Pain) Qty: 25 3RF rosuvastatin 10 mg tablet See Rx Instructions .ROUTE .COMPLEX Qty: 90 3RF Dose Instruction: Take 1 tablet by mouth once daily Rx Instructions: Take 1 tablet by mouth once daily Referrals / Follow Up: Janet Green MD [Primary Care Provider] - Within 2 Weeks Job Kraus DO [Med Staff - Pourer Off] - Within 2 Weeks Disposition Disposition (needs filled in before D/C Order can be placed): Home Health Service Charges/Coding Visit Charges Inpatient E&M: 91208 Disch Hosp >30min
--- NOTE | 2023-10-28 11:32 | PHA.DC.MR.R ---
Pharmacy [place] Med Reconciliation Pharmacy Service has performed discharge medication reconciliation for this patient. The patient's discharge medication list was reviewed for discrepancies and discrepancies were resolved. Medications at Discharge Home Medications multivitamin with folic acid 400 mcg tablet 1 tab PO DAILY 08/09/13 sildenafil (pulm.hypertension) 20 mg tablet 20 mg PO .COMPLEX 10/02/17 guaifenesin 600 mg tablet, extended release 12 hr (Mucinex) 600 mg PO BID PRN congestion 07/05/21 bosutinib 500 mg tablet 500 mg PO DAILY 02/17/23 tamsulosin 0.4 mg capsule (Flomax) 0.4 mg PO DAILY 02/17/23 lisinopril 20 mg tablet 20 mg PO BID #180 tabs 03/12/23 nitroglycerin 0.4 mg sublingual tablet 0.4 mg sublingual Q5M PRN Chest Pain #25 tabs 06/04/23 rosuvastatin 10 mg tablet See Rx Instructions .Route .COMPLEX #90 tabs 08/19/23 risperidone 1 mg tablet 1 mg PO BID 30 days #60 tabs 10/28/23 sennosides 8.6 mg-docusate sodium 50 mg tablet (Stool Softener-Stimulant Laxative) 2 tab PO BID PRN PRN Constipation #0 tabs 10/28/23
[2023-10-31 03:08] LABS: Ceruloplasmin 17.9 mg/dL (16.0-31.0); Copper, Serum or Plasma 82 ug/dL (69-132)
== END 2023-10-28 13:40 | disposition home or self-care (01) | DRG 57 ==
LOC: ED 14:04 → MS3 16:23
PROVIDERS: Physician Assistant; Admitting Provider Internal Medicine; Emergency Provider Emergency Medicine; PCP Internal Medicine; Visit Provider Internal Medicine
DX: G30.9 Alzheimer's disease, unspecified (principal); C92.10 Chronic myeloid leukemia, BCR/ABL-positive, not having achieved remission; N17.9 Acute kidney failure, unspecified; F02.811 Dementia in other diseases classified elsewhere, unspecified severity, with agitation; F02.82 Dementia in other diseases classified elsewhere, unspecified severity, with psychotic disturbance; I27.20 Pulmonary hypertension, unspecified; I15.9 Secondary hypertension, unspecified; I10 Essential (primary) hypertension; I25.10 Atherosclerotic heart disease of native coronary artery without angina pectoris; E78.5 Hyperlipidemia, unspecified; R44.1 Visual hallucinations; R62.7 Adult failure to thrive; Z95.5 Presence of coronary angioplasty implant and graft; N40.0 Benign prostatic hyperplasia without lower urinary tract symptoms; Z79.899 Other long term (current) drug therapy; Z90.49 Acquired absence of other specified parts of digestive tract; R94.4 Abnormal results of kidney function studies
CPT/HCPCS: 70450; 80053; 80307; 80320; 81001; 82390; 82525; 82607; 82746; 83735; 84439; 84443; 85025; 93005; 97116; 97162; 97165; 97530; 97535; 99285; J7030; A4216; G0480